=== PATIENT | female | born 1955 | race Caucasian/White ===

== ENCOUNTER 2020-05-24 11:01 | Outpatient (CLI) | payer BC, SELFPAY | END 2020-05-24 11:02 | disposition home or self-care (01) | LOC: ANHCOVIDVC 11:01 | PROVIDERS: PCP Family Medicine | DX: Z23 Encounter for immunization (principal) | CPT/HCPCS: 0001A; 91300 ==

== ENCOUNTER 2020-06-14 10:56 | Outpatient (CLI) | payer BC, SELFPAY | END 2020-06-14 10:57 | disposition home or self-care (01) | LOC: ANHCOVIDVC 10:56 | PROVIDERS: PCP Family Medicine | DX: Z23 Encounter for immunization (principal) | CPT/HCPCS: 0002A; 91300 ==

== ENCOUNTER → 2022-04-29 09:14 | Outpatient (CLI) | payer MEDICARE, SELFPAY ==
--- NOTE | ~2022-04-29 | XR_ITS ---
Clinical Indication: Cough PA and lateral views of the chest: Comparison: 11/01/2012 Findings: The lungs are clear, without evidence of focal consolidation or pleural effusion. Cardiome diastinal silhouette is within normal limits. Bones and soft tissues are unremarkable. Impression: Normal chest. Reviewed, dictated and finalized at [facility]. 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
== END ==
PROVIDERS: PCP Family Medicine; Visit Provider Nurse Practitioner Gerontology
DX: R05.9 Cough, unspecified (principal)
CPT/HCPCS: 71046

== ENCOUNTER 2023-09-08 07:00 | Outpatient (NON) | payer MEDICARE, SELFPAY | END 2023-09-08 07:01 | disposition home or self-care (01) | PROVIDERS: PCP Family Medicine; Visit Provider Internal Medicine Gastroenterology | DX: R13.10 Dysphagia, unspecified (principal); K21.9 Gastro-esophageal reflux disease without esophagitis | CPT/HCPCS: 88305 ==

== ENCOUNTER 2023-09-08 08:50 | Day surgery (SDC) | payer MEDICARE, SELFPAY ==
[2023-09-02 09:23] VITALS: BMI 37.3
[2023-09-02 10:49] VITALS: BMI 35.5
--- NOTE | 2023-09-07 15:28 | WPDANESEPPF ---
Anes - Initial Pre Proc Eval Procedure: Operation Date: 09/08/23 11:00 Proposed Procedures p Esophagogastroduodenoscopy - Lucas Escamilla MD Date/Time: 09/07/23 15:28 Surgeon: Lucas Escamilla MD Pre Op Diagnosis: Dysphagia unspecified Patient Data Age: 67 Gender: F Height: 1.6 m Weight: 91 kg Allergies Allergy/AdvReac Type Severity Reaction Status Date / Time No Known Allergies Allergy Verified 09/08/23 09:58 Home Medications Medication Instructions Recorded Confirmed Type buspirone 5 mg tablet 5 mg PO BID PRN Anxiety 05/15/23 09/08/23 History fluticasone fur. 100 mcg-umeclid 1 inh inhalation DAILY 05/15/23 09/08/23 History 62.5 mcg-vilant 25 mcg inhalat.powder (Trelegy Ellipta) escitalopram oxalate 20 mg tablet 20 mg PO DAILY #90 tabs 07/08/23 09/08/23 Rx (Lexapro) albuterol sulfate 90 mcg/actuation See Rx Instructions .Route 08/10/23 09/08/23 Rx aerosol inhaler .COMPLEX #7 ea hydrocortisone 2.5 % topical 1 applic topical BID PRN itching 08/28/23 09/08/23 Rx ointment #20 grams allopurinol 300 mg tablet 300 mg PO DAILY 09/02/23 09/08/23 History celecoxib 200 mg capsule 200 mg PO BID PRN Pain 09/02/23 09/08/23 History cetirizine 10 mg tablet (Zyrtec) 10 mg PO DAILY 09/02/23 09/08/23 History levothyroxine 75 mcg tablet 75 mcg PO DAILY 09/02/23 09/08/23 History lisinopril 10 mg tablet 10 mg PO DAILY 09/02/23 09/08/23 History omeprazole 20 mg capsule,delayed 20 mg PO DAILY 09/02/23 09/08/23 History release propranolol 40 mg tablet 40 mg PO BID 09/02/23 09/08/23 History triamterene 37.5 1 tablet PO DAILY 09/02/23 09/08/23 History mg-hydrochlorothiazide 25 mg tablet Patient hx anesthesia problems: none Family hx anesthesia problems: none Results Review: All pre-operative results and documents have been reviewed as part of the pre-operative evaluation. PMFSH Past Medical History Medical History Arthritis Benign essential HTN BP (high blood pressure) Chronic cough Chronic pain Cough Diabetes type 2, controlled Gout HLD (hyperlipidemia) Hypothyroidism associated with surgical procedure Migraines Surgical History Surgical History H/O thyroidectomy History of arthroscopic knee surgery right knee 2008 History of total knee arthroplasty right knee x3 2007, 2012, 2013 left knee 2008 Family History Family History Sibling Cerebrovascular accident, Onset Age: 53 Mother Family history of diabetes mellitus in mother, Onset Age: 79 Social History Social History Social History: Smoking status: Never smoker Second hand tobacco smoke exposure: No Alcohol intake: never Substance use: never Substance use type: does not use Lack of Transportation: No Lack of Food: Never True Current Housing: I Have Housing Concerned About Future Housing: No Difficulty Paying Gas/Electric Bills: No Difficulty Paying for Meds: No Currently Unemployed: YES Education: Decline to Answer Difficulty w/ Childcare or Family Care: No Living arrangements: alone Occupation/Education: retired Gender identity (if verbalized by the patient): Female Sexual Orientation (if Verbalized by the Patient): Straight or Heterosexual Spiritual care concerns: No Anes - Eval Final PreProcedure Day of Procedure 09/07/23 15:28 Patient weight: obese Heart: regular rate and rhythm Lungs: clear to auscultation Airway: Mallampati scale class II Neurological: alert and oriented Last oral intake: >/= 8 hours ASA classification: III Emergent: no Anesthetic plan: proceed Anesthesia type and monitoring: general GIVS and standard monitoring Results Review: All pre-operative results and documents have been reviewed as part of the pre-operative e
--- NOTE | 2023-09-07 21:03 | PM.HPGS ---
History of Present Illness History of Present Illness Consent: Risks, benefits, and alternatives have been discussed and questions answered. Patient agrees to proceed with procedure. Chief complaint: Dysphagia unspecified Narrative: Sheri Berger is a 67 year old female referred for investigation of dysphagia. The last couple of years she has had food getting stuck. She feels as though she is choking on food At Times even liquids can cause it to happen. Review of Systems Review of Systems: All systems reviewed & are unremarkable except as noted in HPI and below PMFSH Past Medical History Medical History Arthritis Benign essential HTN BP (high blood pressure) Chronic cough Chronic pain Cough Diabetes type 2, controlled Gout HLD (hyperlipidemia) Hypothyroidism associated with surgical procedure Migraines Surgical History Surgical History H/O thyroidectomy History of arthroscopic knee surgery right knee 2008 History of total knee arthroplasty right knee x3 2007, 2011, 2013 left knee 2008 Family History Family History Sibling Cerebrovascular accident, Onset Age: 53 Mother Family history of diabetes mellitus in mother, Onset Age: 79 Social History Social History Social History: Smoking status: Never smoker Second hand tobacco smoke exposure: No Alcohol intake: never Substance use: never Substance use type: does not use Lack of Transportation: No Lack of Food: Never True Current Housing: I Have Housing Concerned About Future Housing: No Difficulty Paying Gas/Electric Bills: No Difficulty Paying for Meds: No Currently Unemployed: YES Education: Decline to Answer Difficulty w/ Childcare or Family Care: No Living arrangements: alone Occupation/Education: retired Gender identity (if verbalized by the patient): Female Sexual Orientation (if Verbalized by the Patient): Straight or Heterosexual Spiritual care concerns: No Meds Home Medications and Allergies Home Medications Medication Instructions Recorded Confirmed Type buspirone 5 mg tablet 5 mg PO BID PRN Anxiety 05/15/23 09/08/23 History fluticasone fur. 100 mcg-umeclid 1 inh inhalation DAILY 05/15/23 09/08/23 History 62.5 mcg-vilant 25 mcg inhalat.powder (Trelegy Ellipta) escitalopram oxalate 20 mg tablet 20 mg PO DAILY #90 tabs 07/08/23 09/08/23 Rx (Lexapro) albuterol sulfate 90 mcg/actuation See Rx Instructions .Route 08/10/23 09/08/23 Rx aerosol inhaler .COMPLEX #7 ea hydrocortisone 2.5 % topical 1 applic topical BID PRN itching 08/28/23 09/08/23 Rx ointment #20 grams allopurinol 300 mg tablet 300 mg PO DAILY 09/02/23 09/08/23 History celecoxib 200 mg capsule 200 mg PO BID PRN Pain 09/02/23 09/08/23 History cetirizine 10 mg tablet (Zyrtec) 10 mg PO DAILY 09/02/23 09/08/23 History levothyroxine 75 mcg tablet 75 mcg PO DAILY 09/02/23 09/08/23 History lisinopril 10 mg tablet 10 mg PO DAILY 09/02/23 09/08/23 History omeprazole 20 mg capsule,delayed 20 mg PO DAILY 09/02/23 09/08/23 History release propranolol 40 mg tablet 40 mg PO BID 09/02/23 09/08/23 History triamterene 37.5 1 tablet PO DAILY 09/02/23 09/08/23 History mg-hydrochlorothiazide 25 mg tablet Allergies Allergy/AdvReac Type Severity Reaction Status Date / Time No Known Allergies Allergy Verified 09/08/23 09:58 Exam Const: General: alert Orientation/consciousness: patient oriented x3 Resp: Auscultation: clear to auscultation bilaterally Cardio: Rhythm: regular rhythm GI: GI Palp: Yes Soft to palpation and No Tenderness to palpation present (GI) Neuro: General: patient oriented x3 Assessment and Plan Assessment and plan (1) Dysphagia: Code(s): R13.10 - Dysphagia,
[2023-09-08 10:05] VITALS: BP 144/65; PULSE 61; RESP 18; TEMP 36.6; O2SAT 98; BMI 39.9
[2023-09-08] MEDS: LACTATED RINGERS 1,000 ML 150 ML IV CONT (10:18)
[2023-09-08 11:03] VITALS: BP 109/58; PULSE 59; RESP 16; O2SAT 96
[2023-09-08 11:15] VITALS: BP 124/59; PULSE 58; RESP 15; O2SAT 97
[2023-09-08 11:25] VITALS: BP 135/65; PULSE 57; RESP 15; O2SAT 97
--- NOTE | 2023-09-08 11:58 | WPDANESPN ---
Anes - Prog Note Post-Op Date/Time: 09/08/23 11:58 Cardiovascular status: normal Respiratory status: normal Airway patency: baseline Mental status: baseline Post-Op hydration status: normal Vital Signs: Last Vital Signs Temp 36.6 C 09/08/23 10:05 Pulse 57 L 09/08/23 11:25 Resp 15 09/08/23 11:25 BP 135/65 09/08/23 11:25 Pulse Ox 97 09/08/23 11:25 O2 Del Method Room Air 09/08/23 11:25 Pain Score (VAS): 0 I/O: Intake & Output 09/07/23 09/08/23 09/08/23 23:59 07:59 15:59 Intake Total 400 Balance 400 Post-procedural complaints: none Patient Feedback: Patient satisfied with anesthetic care. Other Findings: Patient vital signs back to baseline. Patient denies nausea and vomiting. Patient's pain under control. Patient OK for discharge.
== END 2023-09-08 11:44 | disposition home or self-care (01) ==
PROVIDERS: PCP Family Medicine; Visit Provider Internal Medicine Gastroenterology
PROC: 0DJ08ZZ Inspection of Upper Intestinal Tract, Via Natural or Artificial Opening Endoscopic (ICD-10-PCS; CPT 43235; principal; 2023-09-08 11:00)
DX: R13.19 Other dysphagia (principal); K22.2 Esophageal obstruction; K31.89 Other diseases of stomach and duodenum
CPT/HCPCS: 43249; 43239

== ENCOUNTER 2023-09-09 13:48 | Outpatient (CLI) | payer MEDICARE, SELFPAY ==
--- NOTE | 2023-09-10 12:39 | WPDPFTINT ---
PFT Procedure Performed PFT Procedure Performed Spirometry with Pre/Post Bronchodilator Plethysmography (Lung Vol) Diffusing Cap (DLCO) Flow Vol Loop PFT Interpretation Lung volumes were measured with the body plethysmography method. The diminished expiratory reserve volume is related to obesity. The remaining lung volumes are unremarkable. Spirometry showed diminished expiratory flow rates and a normal FEV1 to FVC ratio of 83%. Following administration of a bronchodilator there was no significant increase in expiratory flow rates. Lung diffusion capacity is within the normal range at 86% predicted. The flow volume loop is unremarkable. Overall pulmonary function testing could be consistent with obesity. Clinical correlation advised. Impression: Nonspecific pattern. Lung diffusion capacity within the normal range.
== END 2023-09-09 13:49 | disposition home or self-care (01) ==
LOC: ANHPFT 13:53
PROVIDERS: PCP Family Medicine; Visit Provider Physician Assistant
DX: R06.02 Shortness of breath (principal); R05.9 Cough, unspecified
CPT/HCPCS: 94060; 94726; 94729

== ENCOUNTER 2023-10-19 12:00 | Outpatient (CLI) | payer MEDICARE, SELFPAY ==
--- NOTE | ~2023-10-19 | XR_ITS ---
XR foot RT min 3V Ordering provider: Celestina Desai PA-C History: . fall, right foot/big toe swollen . Comparison: None. FINDINGS: BONES: No definite acute fracture or dislocation. Possible lucency in the base of the proximal phalan x of the fourth and fifth toes. Clinical evaluation for tenderness in the area advised. Calcaneus spur. Ossification of the insertion of the tendo Achilles. JOINT SPACES: Normal. No tarsal coalition. SOFT TISSUES: Normal. IMPRESSION: No definite acute osseous abnormality of the right foot. Possible lucency in the base of the proximal phalanx of the fourth and fifth toes. Clinical evaluatio n for tenderness in the area advised. Reviewed, dictated and finalized at location A. IMPRESSION: No definite acute osseous abnormality of the right foot. Possible lucency in the base of the proximal phalanx of the fourth and fifth to es. Clinical evaluation for tenderness in the area advised.
== END 2023-10-19 12:01 ==
LOC: MICIMG 12:02
PROVIDERS: PCP Family Medicine; Visit Provider Physician Assistant
DX: R22.41 Localized swelling, mass and lump, right lower limb (principal); W19.XXXA Unspecified fall, initial encounter
CPT/HCPCS: 73630

== ENCOUNTER 2023-12-04 14:32 | Outpatient (CLI) | payer MEDICARE, SELFPAY ==
--- NOTE | ~2023-12-04 | XR_ITS ---
[id number] Ordering provider: Celestina Desai PA-C History: . M54.2 - Cervicalgia . Comparison: None. FINDINGS: VERTEBRAL BODIES: Normal height and alignment. No visible fracture or subluxation. The dens is intact . DISK SPACES: Narrowing of the disc C3-C4, C4-C5 and C6-C7. Multilevel facet joint disease. Multilevel uncovertebral joint osteoarthritic changes. PARASPINOUS SOFT TISSUES: No prevertebral soft tissue swelling. IMPRESSION: No acute osseous abnormality cervical spine. Multilevel degenerative disc disease. Reviewed, dictated and finalized at location A.
--- NOTE | ~2023-12-04 | XR_ITS ---
3 VIEWS THORACIC SPINE Ordering provider: Celestina Desai PA-C History: . Chronic back pain . Comparison: May 19, 2013 FINDINGS: VERTEBRAL BODIES: Normal height and alignment. No visible fracture or subluxation. Degenerative nichols es of the spine. DISK SPACES: Multilevel degenerative disc disease. SOFT TISSUES: Normal. IMPRESSION: No acute osseous abnormality of the thoracic spine. Multilevel degenerative disc disease. Reviewed, dictated and finalized at location A.
--- NOTE | ~2023-12-04 | XR_ITS ---
3 VIEWS LUMBAR SPINE Ordering provider: Celestina Desai PA-C History: . Chronic back pain . Comparison: None. FINDINGS: VERTEBRAL BODIES:Dextroscoliosis. Degenerative changes of the spine. No visible fracture or subluxat ion. DISK SPACES: Narrowing of all disc spaces in the lumbar area. SOFT TISSUES: Vascular calcifications. IMPRESSION: No acute osseous abnormality lumbar spine. Multilevel degenerative disc disease. Reviewed, dictated and finalized at location A.
== END 2023-12-04 14:33 | disposition home or self-care (01) ==
LOC: MICIMG 14:33
PROVIDERS: PCP Family Medicine; Visit Provider Physician Assistant
DX: G89.29 Other chronic pain (principal); M51.36 Other intervertebral disc degeneration, lumbar region; M51.34 Other intervertebral disc degeneration, thoracic region; M50.31 Other cervical disc degeneration, high cervical region; M50.322 Other cervical disc degeneration at C5-C6 level; M50.323 Other cervical disc degeneration at C6-C7 level
CPT/HCPCS: 72040; 72072; 72100

== ENCOUNTER 2024-01-11 07:59 | Outpatient (CLI) | payer MEDICARE, SELFPAY ==
--- NOTE | ~2024-01-11 | CT_ITS ---
CT of the Abdomen and Pelvis: Indication: Abdominal pain Technique: 2.5 mm axial scans were obtained through the abdomen and pelvis following intravenous adm inistration of 100 cc of Omnipaque 350. Dose reduction technique was used on this scan by utilizing a utomated exposure control and iterative reconstruction technique. The dose-length product (DLP) was 9 40.33 mGy-cm. Findings: Scans through the lung bases are unremarkable. There is diffuse hepatic steatosis. The spleen, pancreas, gallbladder, adrenals and kidneys are withi n normal limits. There are atherosclerotic calcifications of the aorta. No lymphadenopathy. No bowel obstruction or bowel wall thickening. There is no evidence to suggest acute appendicitis. Images through the pelvis were performed. Urinary bladder unremarkable. No pelvic mass seen. No ascit es. There is extensive degenerative spondylosis of the lumbar spine. Impression: No acute abnormalities seen. Diffuse hepatic steatosis. Reviewed, dictated and finalized at [facility]. Impression: No acute abnormalities seen. Diffuse hepatic steatosis.
[2024-01-11 08:28] LABS: Estimated Glomerular Filt Rate 49
== END 2024-01-11 08:00 | disposition home or self-care (01) ==
LOC: MICIMG 08:00
PROVIDERS: PCP Family Medicine; Visit Provider Physician Assistant
DX: K76.0 Fatty (change of) liver, not elsewhere classified (principal); R10.32 Left lower quadrant pain; R19.7 Diarrhea, unspecified
CPT/HCPCS: 74177; Q9967

== ENCOUNTER 2024-01-27 08:14 | Day surgery (SDC) | payer MEDICARE, SELFPAY ==
[2023-12-11 13:52] VITALS: BMI 40.0
[2024-01-19 10:37] VITALS: BMI 35.3
--- NOTE | 2024-01-26 14:08 | P.PNAN_ITS ---
Anes - Initial Pre Proc Eval Procedure: Operation Date: 01/27/24 13:00 Proposed Procedures p Screening Colonoscopy - Laith Hernandez MD Date/Time: 01/26/24 14:08 Surgeon: Laith Hernandez MD Pre Op Diagnosis: Screening for Neoplasm of Colon Patient Data Age: 68 Gender: F Height: 1.6 m Weight: 90.5 kg Allergies Allergy/AdvReac Type Severity Reaction Status Date / Time No Known Allergies Allergy Verified 01/27/24 08:30 Home Medications Medication Instructions Recorded Confirmed Type hydrocortisone 2.5 % topical 1 applic topical BID PRN itching 08/28/23 01/27/24 Rx ointment #20 grams cetirizine 10 mg tablet (Zyrtec) 10 mg PO DAILY 09/02/23 01/27/24 History allopurinol 300 mg tablet 300 mg PO DAILY #90 tabs 01/01/24 01/27/24 Rx celecoxib 200 mg capsule 200 mg PO BID PRN Pain #180 caps 01/01/24 01/27/24 Rx duloxetine 30 mg capsule,delayed 30 mg PO DAILY #30 caps 01/01/24 01/27/24 Rx release (Cymbalta) levothyroxine 75 mcg tablet 75 mcg PO DAILY #90 tabs 01/01/24 01/27/24 Rx lisinopril 10 mg tablet 10 mg PO DAILY #90 tabs 01/01/24 01/27/24 Rx metformin 500 mg tablet 500 mg PO BIDWMEAL #180 tabs 01/01/24 01/27/24 Rx omeprazole 40 mg capsule,delayed 40 mg PO DAILY #90 caps 01/01/24 01/27/24 Rx release propranolol 40 mg tablet 40 mg PO BID #180 tabs 01/01/24 01/27/24 Rx triamterene 37.5 See Rx Instructions .Route 01/01/24 01/27/24 Rx mg-hydrochlorothiazide 25 mg tablet .COMPLEX #100 tabs Patient hx anesthesia problems: none Family hx anesthesia problems: none Results Review: All pre-operative results and documents have been reviewed as part of the pre- operative evaluation. [facility] Past Medical History Medical History Arthritis Benign essential HTN BP (high blood pressure) Chronic cough Chronic pain Cough Diabetes type 2, controlled Gout HLD (hyperlipidemia) Hypothyroidism associated with surgical procedure Migraines Surgical History Surgical History H/O thyroidectomy History of arthroscopic knee surgery right knee 2008 History of total knee arthroplasty right knee x3 2007, 2011, 2013 left knee 2008 Family History Family History Sibling Cerebrovascular accident, Onset Age: 53 Mother Family history of diabetes mellitus in mother, Onset Age: 79 Social History Social History Social History: Smoking status: Never smoker Second hand tobacco smoke exposure: No Alcohol intake: unknown Substance use: never Substance use type: does not use Lack of Transportation: No Lack of Food: Never True Current Housing: I Have Housing Concerned About Future Housing: No Difficulty Paying Gas/Electric Bills: No Difficulty Paying for Meds: No Currently Unemployed: YES Education: Decline to Answer Difficulty w/ Childcare or Family Care: No Living arrangements: with family Occupation/Education: retired Gender identity (if verbalized by the patient): Female Sexual Orientation (if Verbalized by the Patient): Straight or Heterosexual Spiritual care concerns: No Anes - Eval Final PreProcedure Day of Procedure 01/26/24 14:08 Patient weight: obese Heart: regular rate and rhythm Lungs: clear to auscultation Airway: Mallampati scale class II Neurological: alert and oriented Last oral intake: >/= 8 hours ASA classification: III Emergent: no Anesthetic plan: proceed Anesthesia type and monitoring: general GIVS and standard monitoring Results Review: All pre-operative results and documents have been reviewed as part of the pre- operative evaluation. Informed Consent: The patient's anesthetic plan and its attendant risks and benefits were di scussed with the patient/family/POA. Questions were solicited and answers provided to the satisfaction of the patient/family/POA.
[2024-01-27 08:31] VITALS: BP 146/76; PULSE 71; RESP 16; TEMP 36.9; O2SAT 99
[2024-01-27] MEDS: LACTATED RINGERS 1,000 ML 150 ML IV CONT (08:44)
[2024-01-27 08:46] LABS: Glucose Point of Care 150 mg/dl (65-105)
--- NOTE | 2024-01-27 09:01 | PM.HPGS ---
History of Present Illness History of Present Illness Consent: Risks, benefits, and alternatives have been discussed and questions answered. Patient agrees to proceed with procedure. Chief complaint: Screening for Neoplasm of Colon Narrative: Sheri Berger is a 68 year old female presents for screening colonoscopy. Patient's current weight appetite and bowel movements are normal. She denies any change. She has had no bleeding. She does report intermittent vague left upper quadrant pain. She also has associated constipation and alteration in bowel habits. Colonoscopy has been requested for screening purposes. Previous colonoscopy in 2009 was unremarkable. Review of Systems Review of Systems: All systems reviewed & are unremarkable except as noted in HPI and below PMFSH Past Medical History Medical History Arthritis Benign essential HTN BP (high blood pressure) Chronic cough Chronic pain Cough Diabetes type 2, controlled Gout HLD (hyperlipidemia) Hypothyroidism associated with surgical procedure Migraines Surgical History Surgical History H/O thyroidectomy History of arthroscopic knee surgery right knee 2008 History of total knee arthroplasty right knee x3 2007, 2012, 2013 left knee 2008 Family History Family History Sibling Cerebrovascular accident, Onset Age: 53 Mother Family history of diabetes mellitus in mother, Onset Age: 79 Social History Social History Social History: Smoking status: Never smoker Second hand tobacco smoke exposure: No Alcohol intake: unknown Substance use: never Substance use type: does not use Lack of Transportation: No Lack of Food: Never True Current Housing: I Have Housing Concerned About Future Housing: No Difficulty Paying Gas/Electric Bills: No Difficulty Paying for Meds: No Currently Unemployed: YES Education: Decline to Answer Difficulty w/ Childcare or Family Care: No Living arrangements: with family Occupation/Education: retired Gender identity (if verbalized by the patient): Female Sexual Orientation (if Verbalized by the Patient): Straight or Heterosexual Spiritual care concerns: No Meds Home Medications and Allergies Home Medications Medication Instructions Recorded Confirmed Type hydrocortisone 2.5 % topical 1 applic topical BID PRN itching 08/28/23 01/27/24 Rx ointment #20 grams cetirizine 10 mg tablet (Zyrtec) 10 mg PO DAILY 09/02/23 01/27/24 History allopurinol 300 mg tablet 300 mg PO DAILY #90 tabs 01/01/24 01/27/24 Rx celecoxib 200 mg capsule 200 mg PO BID PRN Pain #180 caps 01/01/24 01/27/24 Rx duloxetine 30 mg capsule,delayed 30 mg PO DAILY #30 caps 01/01/24 01/27/24 Rx release (Cymbalta) levothyroxine 75 mcg tablet 75 mcg PO DAILY #90 tabs 01/01/24 01/27/24 Rx lisinopril 10 mg tablet 10 mg PO DAILY #90 tabs 01/01/24 01/27/24 Rx metformin 500 mg tablet 500 mg PO BIDWMEAL #180 tabs 01/01/24 01/27/24 Rx omeprazole 40 mg capsule,delayed 40 mg PO DAILY #90 caps 01/01/24 01/27/24 Rx release propranolol 40 mg tablet 40 mg PO BID #180 tabs 01/01/24 01/27/24 Rx triamterene 37.5 See Rx Instructions .Route 01/01/24 01/27/24 Rx mg-hydrochlorothiazide 25 mg tablet .COMPLEX #100 tabs Allergies Allergy/AdvReac Type Severity Reaction Status Date / Time No Known Allergies Allergy Verified 01/27/24 08:30 Vital Signs Vital Signs - 24 hr 01/27/24 08:31 Temperature 98.4 F Pulse Rate 71 Respiratory Rate 16 Blood Pressure 146/76 H Pulse Oximetry 99 Oxygen Delivery Room Air Exam Narrative: Physical exam reveals patient to be alert. Vital signs stable. HEENT exam is unremarkable. Patient is anicteric. Lungs are clear to auscultation and to percussion. Heart is without murmur or extra sounds. Abdomen bowel sounds are present soft nontender with no organomegaly. Digital external rectal exam is normal. Assessment and Plan Assessment and plan (1) Screen for colon cancer: Code(s): Z12.11 - Encounter for screening for malignant neoplasm of colon Status: Acute Assessment and Plan: Presents today for neoplasia screening colonoscopy. Further recommendations may be given after endoscopy.
[2024-01-27 10:31] VITALS: BP 128/65; PULSE 76; RESP 16; O2SAT 97
[2024-01-27 10:41] VITALS: BP 130/64; PULSE 75; RESP 18; O2SAT 98
[2024-01-27 10:51] VITALS: BP 135/69; PULSE 64; RESP 18; O2SAT 100
--- NOTE | 2024-01-27 12:53 | WPDANESPN ---
Anes - Prog Note Post-Op Date/Time: 01/27/24 12:53 Cardiovascular status: normal Respiratory status: normal Airway patency: baseline Mental status: baseline Post-Op hydration status: normal Vital Signs: Last Vital Signs Temp 36.9 C 01/27/24 08:31 Pulse 64 01/27/24 10:51 Resp 18 01/27/24 10:51 BP 135/69 01/27/24 10:51 Pulse Ox 100 01/27/24 10:51 O2 Del Method Room Air 01/27/24 10:51 Pain Score (VAS): 0 I/O: Intake & Output 01/26/24 01/27/24 01/27/24 23:59 07:59 15:59 Intake Total 400 Balance 400 01/27/24 08:42 POC Capillary Glucose 150 H Post-procedural complaints: none Patient Feedback: Patient satisfied with anesthetic care. Other Findings: Patient vital signs back to baseline. Patient denies nausea and vomiting. Patient's pain under control. Patient OK for discharge.
== END 2024-01-27 11:03 | disposition home or self-care (01) ==
PROVIDERS: PCP Family Medicine; Visit Provider Internal Medicine Gastroenterology
PROC: 0DJD8ZZ Inspection of Lower Intestinal Tract, Via Natural or Artificial Opening Endoscopic (ICD-10-PCS; CPT 45378; principal; 2024-01-27 13:00)
DX: Z12.11 Encounter for screening for malignant neoplasm of colon (principal); K64.8 Other hemorrhoids
CPT/HCPCS: 45378

== ENCOUNTER 2024-05-02 08:00 | Outpatient (CLI) | payer MEDICARE, SELFPAY ==
--- NOTE | ~2024-05-02 | MR_ITS ---
EXAMINATION: MR lumbar spine wo con DATE: 05/02/2024 08:39 INDICATION: Radiculopathy, lumbosacral region. TECHNIQUE: Magnetic resonance imaging (MRI) of the lumbar spine was performed without intravenous con trast. Sequences included sagittal T2-weighted FSE, sagittal T2-weighted FS FSE, sagittal T1-weighted FSE, and axial T2-weighted FSE. COMPARISON: Lumbar spine radiographs 12/04/2023 FINDINGS: There is 27 degrees dextroscoliosis of lumbar spine. There is 3 mm retrolisthesis of L1 on L2. There is severely decreased disc height from T12-L1 through L5-S1. The distal spinal cord signal intensity is normal. The conus medullaris is at T12-L1. The following disc levels are specifically di scussed: L1-L2: The disc is bulging. There is severe bilateral facet joint osteoarthritis. There is mild bilat eral neural foraminal stenosis. There is mild central canal stenosis. L2-L3: The disc is bulging. There is severe bilateral facet joint osteoarthritis. There is mild bilat eral neural foraminal stenosis. There is mild central canal stenosis. L3-L4: The disc is bulging. There is severe bilateral facet joint osteoarthritis. There is mild bilat eral neural foraminal stenosis. There is mild central canal stenosis. L4-L5: The disc is bulging. There is severe bilateral facet joint osteoarthritis. There is moderate r ight and mild left neural foraminal stenosis. There is mild central canal stenosis. L5-S1: The disc is bulging. There is severe bilateral facet joint osteoarthritis. There is mild bilat eral neural foraminal stenosis. There is mild central canal stenosis. IMPRESSION: 1. Severe lumbar spondylosis. 2. Lumbar dextroscoliosis. Reviewed, dictated and finalized at location A. 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
== END 2024-05-02 08:01 | disposition home or self-care (01) ==
PROVIDERS: PCP Family Medicine; Visit Provider Anesthesiology Pain Medicine
DX: M47.816 Spondylosis without myelopathy or radiculopathy, lumbar region (principal); M41.86 Other forms of scoliosis, lumbar region; M48.062 Spinal stenosis, lumbar region with neurogenic claudication
CPT/HCPCS: 72148

== ENCOUNTER 2024-05-24 07:29 | Day surgery (SDC) | payer MEDICARE, SELFPAY ==
[2024-05-03 10:49] VITALS: BMI 37.8
--- NOTE | 2024-05-04 15:07 | SUR.PREOP ---
PT NOTIFIED OF TIME CHANGE. PROCEDURE TIME IS NOW 0900. PT TO ARRIVE AT [facility] AT 0800. PT MAY STILL HAVE A LIGHT BREAKFAST BUT MUST BE FINISHED AND NPO AT 0700. 2 HOURS PRIOR TO PROCEDURE. PT VERBALIZED UNDERSTANDING.
[2024-05-24 08:10] VITALS: BP 136/71; PULSE 74; RESP 20; TEMP 36.8; O2SAT 97; BMI 37.3
--- NOTE | 2024-05-24 08:12 | PM.HPGS ---
History of Present Illness History of Present Illness Consent: Risks, benefits, and alternatives have been discussed and questions answered. Patient agrees to proceed with procedure. Chief complaint: Lumbosacral spondylosis, chronic low back pain Narrative: Sheri Berger is a 68 year old female with chronic, recalcitrant and disabling bilateral lumbosacral back pain secondary to degenerative spondylosis with failure to respond to aggressive conservative measures including PT, oral and topical analgesics, opioid and nonopioid analgesics, rest, time and activity/behavioral modification over the past 1-2 years who presents for diagnostic/prognostic medial branch blocks of the bilateral L3, L4, L5 medial branches/dorsal ramus(#1) addressing the ipsilateral L4-5, L5-S1 facet joints under fluoroscopic guidance and with contrast control. Review of Systems Review of Systems: Patient denies any new infectious, allergic, cardiopulmonary, neurologic or constitutional symptoms or changes in activity tolerance or exercise capacity including new or progressive SOB/KANG, peripheral edema, productive cough, dysuria, nausea/vomiting, diarrhea, weight change, fevers/chills/night sweats, new or progressive neurologic deficit, cognitive or mood changes since last seen, except as documented in the HPI. All systems reviewed & are unremarkable except as noted in HPI and below PMFSH Past Medical History Medical History Diabetes type 2, controlled Chronic cough Cough HLD (hyperlipidemia) Hypothyroidism associated with surgical procedure Benign essential HTN Migraines Gout Chronic pain Arthritis BP (high blood pressure) Surgical History Surgical History History of arthroscopic knee surgery right knee 2008 H/O thyroidectomy History of total knee arthroplasty right knee x3 2007, 2012, 2013 left knee 2008 Family History Family History Sibling Cerebrovascular accident, Onset Age: 53 Mother Family history of diabetes mellitus in mother, Onset Age: 79 Social History Social History Social History: Smoking status: Never smoker Second hand tobacco smoke exposure: No Alcohol intake: unknown Substance use: never Substance use type: does not use Lack of Transportation: No Lack of Food: Never True Current Housing: I Have Housing Concerned About Future Housing: No Difficulty Paying Gas/Electric Bills: No Difficulty Paying for Meds: No Currently Unemployed: YES Education: Decline to Answer Difficulty w/ Childcare or Family Care: No Living arrangements: with family Occupation/Education: retired Gender identity (if verbalized by the patient): Female Sexual Orientation (if Verbalized by the Patient): Straight or Heterosexual Spiritual care concerns: No Meds Home Medications and Allergies Home Medications ?Medication ?Instructions ?Recorded ?Confirmed ?Type cetirizine 10 mg tablet (Zyrtec) 10 mg PO DAILY 09/02/23 05/24/24 History allopurinol 300 mg tablet 300 mg PO DAILY #90 tabs 01/01/24 05/24/24 Rx celecoxib 200 mg capsule 200 mg PO BID PRN Pain #180 caps 01/01/24 05/24/24 Rx levothyroxine 75 mcg tablet 75 mcg PO DAILY #90 tabs 01/01/24 05/24/24 Rx lisinopril 10 mg tablet 10 mg PO DAILY #90 tabs 01/01/24 05/24/24 Rx metformin 500 mg tablet 500 mg PO BIDWMEAL #180 tabs 01/01/24 05/24/24 Rx omeprazole 40 mg capsule,delayed 40 mg PO DAILY #90 caps 01/01/24 05/24/24 Rx release propranolol 40 mg tablet 40 mg PO BID #180 tabs 01/01/24 05/24/24 Rx triamterene 37.5 See Rx Instructions .Route 01/01/24 05/24/24 Rx mg-hydrochlorothiazide 25 mg tablet .COMPLEX #100 tabs duloxetine 30 mg capsule,delayed 30 mg PO DAILY #90 caps 02/12/24 05/24/24 Rx release (Cymbalta) alprazolam 0.5 mg tablet 0.5 mg PO DAILY anxiety #2 tabs 05/17/24 05/24/24 Rx Allergies Allergy/AdvReac Type Severity Reaction Status Date / Time No Known Allergies Allergy Verified 05/24/24 08:00 Vital Signs Vital Signs - 24 hr 05/24/24 08:10 Temperature 98.3 F Pulse Rate 74 Respiratory Rate 20 Blood Pressure 136/71 Pulse Oximetry 97 Oxygen Delivery Room Air Exam Narrative: The patient's physical exam is essentially unchanged from prior examination on 04/11/2024. Specifically, patient demonstrates normal lung capacity, tidal volume and respiratory rate without wheezes, crackles, rales or rubs. Heart rate and rhythm are regular without murmurs, gallops or rubs. No JVD. Pulses 2+ globally without increasing peripheral edema. AAOx3 with no evidence of confusion, intoxication or altered mental state, NC/AT without acute distress or altered consciousness. Speech, cognition, mood, insight and judgment at baseline and within normal limits. Assessment and Plan Assessment and plan (1) Lumbosacral spondylosis: Code(s): M47.817 - Spondylosis without myelopathy or radiculopathy, lumbosacral region Status: Acute Assessment and Plan: Proceed as planned with diagnostic/prognostic medial branch blocks of the bilateral L3, L4, L5 medial branches/dorsal ramus(#1) addressing the ipsilateral L4-5, L5-S1 facet joints under fluoroscopic guidance and with contrast control. (2) Dorsalgia of lumbosacral region: Code(s): M54.50 - Low back pain, unspecified Status: Acute (3) Chronic pain: Code(s): G89.29 - Other chronic pain Status: Acute
--- NOTE | 2024-05-24 08:14 | WPDHPUPDATE1 ---
History and Physical Update Update Date/Time: 05/24/24 08:14 History and Physical has been reviewed, including an updated exam of the patient. There are NO changes in the patient's condition. Risks, benefits, and alternatives have been discussed and questions answered. Patient agrees to proceed with procedure.
--- NOTE | 2024-05-24 08:14 | W.PM.PROC2 ---
Procedure Note - Detailed Date of Procedure 05/24/24 Pre-op Diagnosis Lumbosacral spondylosis, chronic low back pain Post-op Diagnosis Same Procedure Performed Diagnostic bilateral Lumbar Medial Branch/Dorsal Ramus Blocks at L3, L4, L5 Treating the bilateral L4-5, L5-S1 Facet Joints Under Fluoroscopic Guidance and with Contrast Control. (4 levels blocked). Surgeon Ruben Forde MD [facility]er Induction None. Anesthesia Local Description of Procedure INFORMED CONSENT: Risks, benefits and alternatives to the procedure were discussed in detail with the patient who expressed explicit understanding and consent to proceed. Patient was informed verbally and in written form regarding the risks associated with the procedure including the low risk of serious infection, bleeding/bruising, allergic reaction, nerve or organ injury, paralysis, procedural site pain or discomfort, worsening pain and/or mobility, failure to treat and/or disfigurement. The patient expressed explicit understanding and consent to proceed. All materials required for the procedure were available prior to procedure start. Site and side were marked prior to procedure and confirmed in the presence of the patient. PROCEDURE IN DETAIL: The patient was brought to the procedural suite and placed in the prone position. Patient was made comfortable with use of pillows under the head/chest, hips and ankles. Skin overlying the injection site on the affected side(s) was prepared broadly with ChloraPrep applicator and draped in a sterile manner. Aseptic technique was used throughout. The endplates of the vertebral bodies at the site(s) of interest were aligned in the AP view. Ipsilateral oblique angulation was utilized to optimize visualization of the intersection between the superior articulating process and transverse process at each target site. Local anesthesia was established by infiltration with approximately 5 mL of 1% lidocaine via a 1-1/2 inch 27-gauge needle. A 25-gauge 5.0 inch Quincke spinal needle was advanced until the needle tip contacted periosteum at the target site, right L3. Lateral view was utilized to confirm the appropriate placement of the needle tip just anterior to the facet line and superior to the pedicle. In the Lateral view, 0.25 mL of Omnipaque 300 contrast medium was injected after negative aspiration for CSF, blood or other bodily fluid, showing appropriate extra-articular spread of contrast without evidence of intravascular, foraminal or intrathecal placement. A 0.5 mL solution of 0.5% PF bupivacaine was injected after negative repeat aspiration. Appropriate spread of the injectate was confirmed with washout of previously injected contrast. No parasthesias were elicited. Needle was removed completely intact without difficulty. The same exact procedure was repeated for all remaining levels on the ipsilateral side, right L4, L5 medial branches/dorsal ramus, modified as necessary to accommodate for the new target location with identical findings and results and no evidence of complication. The same exact procedure was repeated for all remaining levels on the contralateral side, left L3, L4, L5 medial branches/dorsal ramus, modified as necessary to accommodate for the new target location with identical findings and results and no evidence of complication. Images were saved and documented in the patient chart. Patient's skin was cleaned and sterile bandage applied. The patient tolerated the procedure well. The patient was transported to the recovery area in stable condition where they were observed for an appropriate amount of time prior to discharge, without evidence of complication. Patient was instructed on the appropriate completion of a pain diary over the next 12-24 hours. The patient was instructed to avoid excessive activity for the next 48 hours, including climbing and frequent use of stairs. Showers only for 48 hours. They were instructed not to drive or operate heavy machinery for 24 hours. They are to monitor for severe headaches, fevers, chills, night sweats, erythema/swelling at the site or any other signs of infection, bleeding/bruising, bowel or bladder changes as well as new pain, weakness or numbness in the upper or lower extremity. Should they notice these changes, they are instructed to call our office immediately or report directly to the nearest Emergency Department if no answer or if after posted office hours. COMPLICATIONS: None COMMENTS: None CONTRAST WASTED: 28.5mL Omnipaque 300. Complications No immediate complications Condition Stable Disposition Same day [facility] Billing Surgery - Charge Forward: Surgery Billing
[2024-05-24 08:49] VITALS: BP 167/78; PULSE 75; RESP 26; O2SAT 97
[2024-05-24] MEDS: LIDOCAINE 1% PF INJ 5 ML VIAL XX (08:54)
[2024-05-24] MEDS: BUPivacaine HCL 0.5% 10 ML AMP INFILTRATE (08:56)
[2024-05-24 08:59] VITALS: BP 164/82; PULSE 74; RESP 23; O2SAT 97
[2024-05-24 09:06] VITALS: BP 120/66; PULSE 75; RESP 15; O2SAT 97
== END 2024-05-24 09:25 | disposition home or self-care (01) ==
PROVIDERS: PCP Family Medicine; Visit Provider Anesthesiology Pain Medicine
PROC: (CPT 64635; principal; 2024-05-24 09:00)
DX: M47.817 Spondylosis without myelopathy or radiculopathy, lumbosacral region (principal); M54.50 Low back pain, unspecified; G89.29 Other chronic pain
CPT/HCPCS: 64635; 64636 ×6; 99199

== ENCOUNTER 2024-08-02 07:29 | Day surgery (SDC) | payer MEDICARE, SELFPAY ==
--- NOTE | ~2024-08-02 | XR_ITS ---
EXAMINATION: XR fluoroscopy no charge DATE: 08/02/2024 8:55 CDT INDICATION: DIAG/PROG KATY L3,L4,L5 MED BRANCH/DORSAL RAMUS NERVE BLK . TECHNIQUE: 12 fluoroscopic images of the lumbar spine were obtained during diagnostic/prognostic bila teral L3, L4, and L5 medial branch/dorsal ramus nerve blocks, performed by Ruben Forde MD. I was not present during the procedure. Fluoroscopy exposure time was 90.1 seconds. Air Kerma 44.84 mGy. COMPARISON: 05/24/2024 FINDINGS/IMPRESSION: Fluoroscopic documentation of diagnostic/prognostic bilateral L3, L4, and L5 medial branch/dorsal jason us nerve blocks. Please refer to the operative note for complete procedural details . Reviewed, dictated and finalized at location K.
--- NOTE | 2024-08-02 08:02 | P.HP_ITS ---
History of Present Illness History of Present Illness Consent: Risks, benefits, and alternatives have been discussed and questions answered. Patient agrees to proceed with procedure. Chief complaint: Lumbosacral spondylosis, chronic low back pain Narrative: Sheri Berger is a 68 year old female with chronic, recalcitrant and disabling bilateral lumbosacral back pain secondary to degenerative spondylosis with failure to respond to aggressive conservative measures including PT, oral and topical analgesics, opioid and nonopioid analgesics, rest, time and activity/behavioral modification over the past 1-2 years who presents for diagnostic/prognostic medial branch blocks of the bilateral L3, L4, L5 medial branches/dorsal ramus(# 2) addressing the bilateral L4-5, L5-S1 facet joints under fluoroscopic guidance and with contrast control. Review of Systems Review of Systems: Patient denies any new infectious, allergic, cardiopulmonary, neurologic or constitutional symptoms or changes in activity tolerance or exercise capacity including new or progressive SOB/KANG, peripheral edema, productive cough, dysuria, nausea/vomiting, diarrhea, weight change, fevers/chills/night sweats, new or progressive neurologic deficit, cognitive or mood changes since last seen, except as documented in the HPI. All systems reviewed & are unremarkable except as noted in HPI and below PMFSH Past Medical History Medical History Diabetes type 2, controlled Chronic cough Cough HLD (hyperlipidemia) Hypothyroidism associated with surgical procedure Benign essential HTN Migraines Gout Chronic pain Arthritis BP (high blood pressure) Surgical History Surgical History History of arthroscopic knee surgery right knee 2007 H/O thyroidectomy History of total knee arthroplasty right knee x3 2007, 2012, 2013 left knee 2008 Family History Family History Sibling Cerebrovascular accident, Onset Age: 53 Mother Family history of diabetes mellitus in mother, Onset Age: 79 Social History Social History Social History: Smoking status: Never smoker Second hand tobacco smoke exposure: No Alcohol intake: unknown Substance use: never Substance use type: does not use Lack of Transportation: No Lack of Food: Never True Current Housing: I Have Housing Concerned About Future Housing: No Difficulty Paying Gas/Electric Bills: No Difficulty Paying for Meds: No Currently Unemployed: YES Education: Decline to Answer Difficulty w/ Childcare or Family Care: No Living arrangements: with family Occupation/Education: retired Gender identity (if verbalized by the patient): Female Sexual Orientation (if Verbalized by the Patient): Straight or Heterosexual Spiritual care concerns: No Meds Home Medications and Allergies Home Medications ?Medication ?Instructions ?Recorded ?Confirmed ?Type cetirizine 10 mg tablet (Zyrtec) 10 mg PO DAILY 09/02/23 07/12/24 History allopurinol 300 mg tablet 300 mg PO DAILY #90 tabs 01/01/24 07/12/24 Rx levothyroxine 75 mcg tablet 75 mcg PO DAILY #90 tabs 01/01/24 07/12/24 Rx lisinopril 10 mg tablet 10 mg PO DAILY #90 tabs 01/01/24 07/12/24 Rx metformin 500 mg tablet 500 mg PO BIDWMEAL #180 tabs 01/01/24 07/12/24 Rx triamcinolone acetonide 0.1 % 1 applic topical BID PRN eczema 05/31/24 07/12/24 Rx topical cream #15 grams alprazolam 0.5 mg tablet 0.5 mg PO DAILY anxiety #2 tabs 06/20/24 07/12/24 Rx celecoxib 200 mg capsule 200 mg PO BID PRN Pain #180 caps 06/29/24 07/12/24 Rx omeprazole 40 mg capsule,delayed 40 mg PO DAILY #90 caps 06/29/24 07/12/24 Rx release propranolol 40 mg tablet 40 mg PO BID #180 tabs 06/29/24 07/12/24 Rx triamterene 37.5 See Rx Instructions .Route 07/07/24 07/12/24 Rx mg-hydrochlorothiazide 25 mg tablet .COMPLEX #100 tabs duloxetine 30 mg capsule,delayed 30 mg PO DAILY #90 caps 07/15/24 Rx release (Cymbalta) Allergies Allergy/AdvReac Type Severity Reaction Status Date / Time No Known Allergies Allergy Verified 07/12/24 10:36 Exam Narrative: The patient's physical exam is essentially unchanged from prior examination on 06/06/2024. Specifically, patient demonstrates normal lung capacity, tidal volume and respiratory rate without wheezes, crackles, rales or rubs. Heart rate and rhythm are regular without murmurs, gallops or rubs. No JVD. Pulses 2+ globally without increasing peripheral edema. AAOx3 with no evidence of confusion, intoxication or altered mental state, NC/AT without acute distress or altered consciousness. Speech, cognition, mood, insight and judgment at base line and within normal limits. Assessment and Plan Assessment and plan (1) Lumbosacral spondylosis: Code(s): M47.817 - Spondylosis without myelopathy or radiculopathy, lumbosacral region Status: Acute Assessment and Plan: Proceed as planned with diagnostic/prognostic medial branch blocks of the bilateral L3, L4, L5 medial branches/dorsal ramus(# 2) addressing the bilateral L4-5, L5-S1 facet joints under fluoroscopic guidance and with contrast control. (2) Dorsalgia of lumbosacral region: Code(s): M54.50 - Low back pain, unspecified Status: Acute
--- OUTSIDE RECORDS SUMMARY | 2024-08-02 08:03 | XMS_ITS | Encounter Summary ---
Author Organization [facility] Address [facility] [place] [address] Care Team Providers Care Loader Name Role Phone Sherrill Jovel MD Primary Care Provider [phone] Encounter Details Date Type Department Care Team (Late st Contact Info) Description 02/17/2022 Hospital Orders Only [facility] [address] [place] [address] Bruce Coulter MD [address] [facility] [address] [place] [address] Social History Tobacco Use Types Packs/Day Years Used Date Smoking Tobacco: Never Smokeless Tobacco: Never Alcohol Use Standard Drinks/Week Comments Never 0 (1 standard drink = 0.6 oz pur e alcohol) Comments No Sex and Gender Information Value Date Recorded Sex Assigned at Not on file 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 No / Unsure 02/17/2022 8:52 AM GROUNDSKEEPER documented as of this encounter Plan of Treatment Not on file documented as of this encounter Visit Diagnoses Not on filedocumented in this encounter Care Teams Loader Relationship Specialty Start Date End Date Sherrill Jovel MD [address] [facility] [address] [place] [address] PCP - General FAMILY PRACTICE 02/17/22 documented as of this encounter
--- OUTSIDE RECORDS SUMMARY | 2024-08-02 08:03 | XMS_ITS | Referral Summary ---
Author Organization [facility] Address [address] [place] [address] Care Team Providers Care Co Op Name Role Phone Shani See NP Primary Care Provider +1- [phone] Allergies No known active allergies Medications allopurinoL (ZYLOPRIM) 300 mg tabletIndication s:gout Take 1 tablet (300 mg total) by mouth nightly 3 Active cetirizine (ZyrTEC) 10 mg chewable tablet Take 1 tablet (10 mg total) by mouth nightly Active escitalopram (LEXAPRO) 10 mg tabletIndication s:Anxiety with Depression Take 1 tablet (10 mg total) by mouth nightly 3 Active levothyroxine (SYNTHROID) 75 mcg tablet Take 1 tablet (75 mcg total) by mouth drafter commercial before breakfast 3 Active lisinopriL (PRINIVIL,ZESTRI L) 10 mg tabletIndication s:hypertension Take 0.5 tablets (5 mg total) by mouth nightly 3 Active omeprazole (PriLOSEC) 20 mg capsule Take 1 capsule (20 mg total) by mouth every morning 3 Active propranoloL (INDERAL) 40 mg tabletIndication s:Migraine Prevention,hyper tension Take 1 tablet (40 mg total) by mouth 2 (two) times a day 3 Active triamterene-hydr oCHLOROthiazide 37.5-25 mg per tabletIndication s:edema/ BP Take 1 tablet/capsule by mouth every morning 3 Active busPIRone (BUSPAR) 5 mg tablet Take 1 tablet (5 mg total) by mouth 2 (two) times a day as needed (anxiety) 3 Active rivaroxaban (XARELTO) 10 mg tabletIndication s:VTE Prophylaxis Following Ortho Surgery Take 1 tablet (10 mg total) by mouth daily 14 tablet 3 Active acetaminophen (TYLENOL) 500 mg tablet Take 2 tablets (1,000 mg total) by mouth every 8 (eight) hours 90 tablet 1 3 Active senna-docusate (Senna-S) 8.6-50 mg Take 2 tablets by mouth 2 (two) times a day 80 tablet 1 3 Active Additional Information Patient not taking.Reported on 04/26/2024 loperamide (IMODIUM) 2 mg capsuleIndicatio ns:diarrhea Take 1 capsule (2 mg total) by mouth 4 (four) times a day as needed for diarrhea 30 capsule 1 3 Active celecoxib (CeleBREX) 200 mg capsule TAKE 1 CAPSULE BY MOUTH TWICE DAILY NEEDED FOR PAIN 3 Active metFORMIN (GLUCOPHAGE) 500 mg tablet Take 1 tablet (500 mg total) by mouth daily 3 Active traMADoL (ULTRAM) 50 mg tablet Take 1 tablet (50 mg total) by mouth every 8 (eight) hours as needed for pain 42 tablet 3 Active Additional Information Patient not taking.Reported on 04/26/2024 oxyCODONE (ROXICODONE) 5 mg immediate release tabletIndication s:Pain Take 1 tablet (5 mg total) by mouth every 4 (four) hours as needed for pain 30 tablet 3 Active Additional Information Patient not taking.Reported on 04/26/2024 albuterol HFA (PROVENTIL HFA,VENTOLIN HFA,PROAIR HFA) 90 mcg/actuation inhaler INHALE 1 PUFF BY MOUTH EVERY 4 HOURS NEEDED FOR SHORTNESS OF BREATH FOR WHEEZING 3 Active benzonatate (TESSALON) 100 mg capsule TAKE 2 CAPSULES BY MOUTH THREE TIMES DAILY NEEDED FOR COUGH [address] (CYMBALTA) 30 mg capsule Take 1 capsule (30 mg total) by mouth daily 5 Active Active Problems Problem Noted Date Diagnosed Date Right knee pain 07/31/2022 Failed total right knee replacement, 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 HTN (hypertension) 07/22/2022 Hypothyroidism 07/22/2022 Class 2 obesity in adult 07/22/2022 Aseptic loosening of prosthetic knee, initial en counter 06/25/2022 Overview (06/25/2022): Added automatically from request for surgery [id number] Surgical follow-up care 11/09/2012 Knee pain 10/08/2012 Social History Tobacco Use Types Packs/Day Years Used Date Smoking Tobacco: Never Smokeless Tobacco: Never Tobacco Cessation:Counseling Given: Not Answered AUDIT-C Answer Date Recorded Frequency of Alcohol Consumption Not on file 07/30/2022 Q2: How many drinks containi ng alcohol do you have on a typical day when you are drinking? Patient does not drink Frequency of Binge Drinking Not on file 07/21 Personal Safety Answer Date Recorded Have you ever been in or are you currently in a harmful physical or emotional relationship or is someone making you feel afraid or unsafe? 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 Gender Identity Not on file Sexual Orientation Not on file Last Filed Vital Signs Vital Sign Reading Time Taken Comments Blood Pressure 128/58 08/01/2022 8:15 AM CDT Pulse 76 08/01/2022 8:15 AM CDT Temperature 36.5 C (97.7 F) 08/01/2022 8:15 AM CDT Respiratory Rate 16 08/01/2022 8:15 AM CDT Oxygen Saturation 99% 08/01/2022 8:15 AM CDT Inhaled Oxygen Concentration - - Weight 100.5 kg (221 lb 9.6 oz) 025 10:37 AM TRACTOR OPERATOR Height 161.3 cm (5' 3.5 ) 04/26/2024 10 :37 AM TRACTOR OPERATOR Body Mass Index 38.64 04/26/2024 10:37 AM TRACTOR OPERATOR Plan of Treatment Not on file Medical Devices Implanted Type Area Paint Stockman Device Identifier Shelf Expiration Date Model / Serial / Lot [employer] Simplex P Full Dose Radiopaque Preblend Cement Bone Tobramycin 6197-9-010 - [id number] Implanted:Qty: 1 on 07/30/2022 by Shreyas Persaud MD at [facility] Right: Knee [employer] 10/21/2023 6197-9-010 / / [id number] [employer]hew[employer]O rtho Legion 18mm Knee Short Cone Wedge Tibial Sterile [id number] - [id number] - [id number] Implanted:Qty: 1 on 07/30/2022 by Shreyas Persaud MD at [facility] [employer]Rich[employer]/O rtho 05/23/2032 [id number] / [id number] / [employer]O rtho Legion 10mm 220mm Pressfit Knee Straight Stem Femoral [id number] - [id number] - [id number] Implanted:Qty: 1 on 07/30/2022 by Shreyas Persaud MD at [facility] Right: Knee [employer]/Rich[employer]/O rtho 02/06/2025 [id number] / [id number] / [employer]O rtho Legion Revision Knee Right 3 Baseplate Tibial [id number] - [id number] Implanted:Qty: 1 on 07/30/2022 by Shreyas Persaud MD at [facility] Right: Knee [employer]/Richco/O rtho 05/30/2032 [id number] / / [employer] Nexgen 15-30mm Knee 67mm Cone Large Step Augment Tibial [id number] - [id number] Implanted:Qty: 1 on 07/30/2022 by Shreyas Persaud MD at [facility] Right: Knee [employer] [id number] 03/22/2024 [id number] / / [id number] Screw On De Tibal Wedge Implanted:Qty: 1 on 07/30/2022 by Shreyas Persaud MD at [facility] Right: Knee [employer] 01/28/2025 / [id number] / [employer] Simplex P Full Dose Radiopaque Preblend Cement Bone Tobramycin 6197-9-010 - [id number] Implanted:Qty: 1 on 07/30/2022 by Shreyas Persaud MD at [facility] Right: Knee [employer] 12/21/2023 6197-9-010 / / [id number] [employer]Rich[employer]/O rtho Ashleigh Ii 15mm Posterior Stabilized Constrained Knee 3-4 Insert [id number] - [id number] Implanted:Qty: 1 on 07/30/2022 by Shreyas Persaud MD at [facility] Right: Knee [employer]Rich[employer]/O rtho [id number] 12/08/2030 [id number] / / [id number] [employer]/O rtho Ashleigh Ii 15mm Posterior Stabilized Constrained Knee 3-4 Insert [id number] - [id number] Implanted:Qty: 1 on 07/30/2022 by Shreyas Persaud MD at [facility] Right: Knee [employer]/Rich[employer]/O rtho [id number] 12/08/2030 [id number] / / [id number] Insurance [facility] [employer] [facility] [employer] Advance Directives For more information, please contact: [phone] * Full Code (Latest Code Status on File) Date Activated Date Inactivated Comments 07/30/2022 5:13 PM 08/01/2022 5:34 PM Care Teams Co Op Relationship Specialty Start Date End Date Shani See NP [address] [place] [address] PCP - General Green Chain Offbearer 04/22/22
--- OUTSIDE RECORDS SUMMARY | 2024-08-02 08:03 | XMS_ITS | Clinical Summary ---
Author Organization [facility] Address [facility] [place] [address] Care Team Providers Care Specialty Foods Cook Name Role Phone Sherrill Jovel MD Primary Care Provider [phone] Allergies No known active allergies Medications allopurinol (ZYLOPRIM) 300 MG tablet Take 300 mg by mouth daily. Active propranolol (INDERAL) 40 MG tablet Take 40 mg by mouth 2 (two) times daily. Active celecoxib (CELEBREX) 200 MG capsule Take 200 mg by mouth 2 (two) times daily. Active triamterene-hydr oCHLOROthiazide (MAXZIDE-25) 37.5-25 MG tablet Take 1 tablet by mouth daily. Active lisinopril (PRINIVIL) 10 MG tablet Take 10 mg by mouth daily. Active escitalopram (LEXAPRO) 10 MG tablet Take 10 mg by mouth daily. Active omeprazole (PRILOSEC) 20 MG capsule Take 20 mg by mouth daily. Active levothyroxine (SYNTHROID) 75 MCG tablet Take 75 mcg by mouth every morning. Active cetirizine (ZYRTEC) 10 MG chewable tablet Chew 10 mg by mouth daily. Active Social History Tobacco Use Types Packs/Day Years Used Date Smoking Tobacco: Never Smokeless Tobacco: Never Tobacco Cessation:Counseling Given: Not Answered Alcohol Use Standard Drinks/Week Comments Never 0 (1 standard drink = 0.6 oz pur e alcohol) Comments No Sex and Gender Information Value Date Recorded Sex Assigned at Not on file Legal Sex Female 7:49 AM FUNERAL PRE ARRANGEMENT COUNSELOR Gender Identity Not on file Sexual Orientation Not on file Last Filed Vital Signs Vital Sign Reading Time Taken Comments Blood Pressure 131/49 02/17/2022 11:19 AM FUNERAL PRE ARRANGEMENT COUNSELOR Pulse 60 02/17/2022 11:19 AM FUNERAL PRE ARRANGEMENT COUNSELOR Temperature 36.2 C (97.2 F) 02/17/2022 9:25 AM FUNERAL PRE ARRANGEMENT COUNSELOR Respiratory Rate 18 02/17/2022 9:25 AM FUNERAL PRE ARRANGEMENT COUNSELOR Oxygen Saturation 96% 02/17/2022 11:19 AM FUNERAL PRE ARRANGEMENT COUNSELOR Inhaled Oxygen Concentration - - Weight 96.2 kg (212 lb) 02/03/2022 1:23 PM FUNERAL PRE ARRANGEMENT COUNSELOR Height 160 cm (5' 3 ) 02/03/2022 1:23 PM FUNERAL PRE ARRANGEMENT COUNSELOR Body Mass Index 37.55 02/03/2022 1:23 PM FUNERAL PRE ARRANGEMENT COUNSELOR Plan of Treatment Health Maintenance Due Date Last Done Comments Colorectal Cancer Screening Colonoscopy (10 Years) 1955 Hepatitis C 11/06/1973 DTaP, Tdap and Td Vaccines ( 1 - Tdap) 11/06/1974 Mammogram Screening 1995 Pneumococcal Vaccine: 50+ Years (1 of 1 - PCV) 11/06/2005 Zoster Vaccines (1 of 2) 11/06/2005 Annual Medicare Wellness Visit 11/06/2020 Dexa Scan (General) 11/06/2020 COVID-19 Vaccine (3 - 2023-2 5 season) 2023 06/14/2020, 05/24/2020 RSV Immunization or 60+ Years (1 - 1-dose 75+ series) 11/06/2030 Meningococcal B Vaccine Aged Out No l onger eligible based on patient's age to complete this topic Meningococcal Vaccine Aged Out No porter mariano eligible based on patient's age to complete this topic RSV Immunizations Under 20 Months Aged Out No longer eligible b ased on patient's age to complete this topic Medical Devices Implanted Type Area Structures Engineer Device Identifier Shelf Expiration Date Model / Serial / Lot Clareon Iol Aspheric Hydrophobic Acrylic Iol Implanted:Qty: 1 on 02/17/2022 by Bruce Coulter MD at [facility] Right: Eye [employer] 06/03/2024 [id number] / [id number] / Insurance MEDICARE [facility] Care Teams Specialty Foods Cook Relationship Specialty Start Date End Date Sherrill Jovel MD [address] [facility] [address] [place] [address] PCP - General FAMILY PRACTICE 02/17/22
--- OUTSIDE RECORDS SUMMARY | 2024-08-02 08:03 | XMS_ITS | Encounter Summary ---
Author Organization [facility] Address [address] [place] [address] Care Team Providers Care Fiscal Analyst Name Role Phone Sherrill Jovel MD Primary Care Provider +1- [phone] Encounter Details Date Type Department Care Team (Late st Contact Info) Description 02/17/2022 Prep for Procedure [facility] [address] [place], [place] [id number] Bruce Coulter MD [address] [facility] [address] [place] [address] Social History Tobacco Use Types Packs/Day Years Used Date Smoking Tobacco: Never Smokeless Tobacco: Never Alcohol Use Standard Drinks/Week Comments Never 0 (1 standard drink = 0.6 oz pur e alcohol) Comments No Sex and Gender Information Value Date Recorded Sex Assigned at Not on file Legal Sex Female 7:49 AM DRY JANITOR Gender Identity Not on file Sexual Orientation Not on file COVID-19 Exposure Response Date Recorded In the last 10 days, have yo u been in contact with someone who was confirmed or suspected to have Coronavirus/COVID-19? No / Unsure 02/17/2022 8:52 AM DRY JANITOR documented as of this encounter Plan of Treatment Not on file documented as of this encounter Visit Diagnoses Not on filedocumented in this encounter Care Teams Fiscal Analyst Relationship Specialty Start Date End Date Sherrill Jovel MD [address] [facility] [address] [place] [address] PCP - General FAMILY PRACTICE 02/17/22 documented as of this encounter
--- OUTSIDE RECORDS SUMMARY | 2024-08-02 08:03 | XMS_ITS | Clinical Summary ---
Author Organization [facility] Address [address] [place] [address] Care Team Providers Care Dry Wall Finisher Name Role Phone Shani See NP Primary Care Provider [phone]- [phone] Allergies No known active allergies Medications allopurinoL [...] 1 tablet (75 mcg total) by mouth outsole cutter machine before breakfast 3 Active lisinopriL (PRINIVIL,ZESTRI L) [...] (06/25/2022): Added automatically from request for surgery [id number] Surgical follow-up care 11/09/2012 Knee pain 10/08/2012 Surgical History Surgery Date Site/Laterality Comments KNEE ARTHROPLASTY REVISION TOTAL KNEE ARTHROPLASTY early and 2012 CATARACT EXTRACTION HAND SURGERY x2 carpal tunnel TONSILLECTOMY THYROIDECTOMY x2 THROAT SURGERY x3 CYST REMOVAL cyst removed from vocal cords (age 9 & 11) TUBAL LIGATION Medical History Medical History Date Comments Aftercare following joint re placement surgery Aftercare following joint re placement - (Added by TW Conv) Osteoarthritis Hypothyroidism Hypertension GERD (gastroesophageal reflux disease) Obesity Gout Motion sickness Social History Tobacco Use Types Packs/Day Years [...] on file Legal Sex Female 11:50 PM FLUE GAS ANALYST Gender Identity Not on file Sexual Orientation Not on file Obstetrics History Last Filed Vital Signs Vital Sign Reading Time Taken Comments Blood Pressure 128/58 08/01/2022 8:15 AM CDT Pulse 76 08/01/2022 8:15 AM CDT Temperature 36.5 C (97.7 F) 08/01/2022 8:15 AM CDT Respiratory Rate 16 08/01/2022 8:15 AM CDT Oxygen Saturation 99% 08/01/2022 8:15 AM CDT Inhaled Oxygen Concentration - - Weight 100.5 kg (221 lb 9.6 oz) 025 10:37 AM FLUE GAS ANALYST Height 161.3 cm (5' 3.5 ) 04/26/2024 10 :37 AM FLUE GAS ANALYST Body Mass Index 38.64 04/26/2024 10:37 AM FLUE GAS ANALYST Plan of Treatment Health Maintenance Due Date Last Done Comments Breast Cancer Screening-Mammogram 1955 Colon Cancer Screening-Colonoscopy 1955 Depression Screening 1955 Hepatitis C Screening 1955 Osteoporosis Screening-Bone Density Scan 1955 DTaP/Tdap/Td Vaccine (1 - Tdap) 11/06/1966 Hepatitis B Screening 11/06/1973 Pneumococcal vaccine 65+ (1 of 1 - PCV) 11/06/2005 Zoster Vaccine (1 of 2) 11/06/2005 Well Visit 65+ 11/06/2020 Fall Risk Assessment 08/02/2023 08/01/2022 Covid-19 Vaccine ( season) 2023, 05/24/2020 Influenza Vaccine (#1) 2023 Medical Devices Implanted Type Area Heating Equipment Repairer Device Identifier Shelf Expiration Date Model / Serial / Lot [employer] Simplex P Full Dose Radiopaque Preblend Cement Bone Tobramycin 6197-9-010 - [id number] Implanted:Qty: 1 on 07/30/2022 by Shreyas Persaud MD at [facility] Right: Knee [employer] 10/21/2023 6197-9-010 / / [id number] [employer] r[employer]o Legion 18mm Knee Short Cone Wedge Tibial Sterile [id number] - [id number] - [id number] Implanted:Qty: 1 on 07/30/2022 by Shreyas Persaud MD at [facility] [employer]/O rtho 05/23/2032 [id number] / [id number] / [employer] r[employer]o Legion 10mm 220mm Pressfit Knee Straight Stem Femoral [id number] - [id number] - [id number] Implanted:Qty: 1 on 07/30/2022 by Shreyas Persaud MD at [facility] Right: Knee [employer] rtho 02/06/2025 [id number] / [id number] / [employer]O rtho Legion Revision Knee Right 3 Baseplate Tibial [id number] - [id number] Implanted:Qty: 1 on 07/30/2022 by Shreyas Persaud MD at [facility] Right: Knee [employer]O rtho 05/30/2032 [id number] / / [employer] Nexgen 15-30mm Knee 67mm Cone Large Step Augment Tibial [id number] - [id number] Implanted:Qty: 1 on 07/30/2022 by Shreyas Persaud MD at [facility] Right: Knee [employer] [id number] 03/22/2024 [id number] / / [id number] Screw On De Tibal Wedge Implanted:Qty: 1 on 07/30/2022 by Shreyas Persaud MD at [facility] Right: Knee [employer] 01/28/2025 / [id number] / [employer] Simplex P Full Dose Radiopaque Preblend Cement Bone Tobramycin 6197-9-010 - [id number] Implanted:Qty: 1 on 07/30/2022 by Shreyas Persaud MD at [facility] Right: Knee [employer] 12/21/2023 6197-9-010 / / [id number] [employer]Rich[employer]/O rtho Ashleigh Ii 15mm Posterior Stabilized Constrained Knee 3-4 Insert [id number] - [id number] Implanted:Qty: 1 on 07/30/2022 by Shreyas Persaud MD at [facility] Right: Knee [employer]/O rtho [id number] 12/08/2030 [id number] / / [id number] [employer] rtho Ashleigh Ii 15mm Posterior Stabilized Constrained Knee 3-4 Insert [id number] - [id number] Implanted:Qty: 1 on 07/30/2022 by Shreyas Persaud MD at [facility] Right: Knee [employer]Rich[employer]/O rtho [id number] 12/08/2030 [id number] / / [id number] Insurance [facility]ICARE [facility] Address: [address] [address] [place] [address] MEDICARE [facility] Address: [address] [address] [place] [address] Advance Directives For more information, please contact: [phone] * Full Code (Latest Code Status on File) Date Activated Date Inactivated Comments 07/30/2022 5:13 PM 08/01/2022 5:34 PM Care Teams Dry Wall Finisher Relationship Specialty Start Date End Date Shani See NP [address] [place] [address] PCP - General Clay Carman 04/22/22
--- NOTE | 2024-08-02 08:05 | WPDHPUPDATE1 ---
History and Physical Update Update Date/Time: 08/02/24 08:05 History and Physical has been reviewed, including an updated exam of the patient. There are NO changes in the patient's condition. Risks, benefits, and alternatives have been discussed and questions answered. Patient agrees to proceed with procedure.
--- NOTE | 2024-08-02 08:06 | W.PM.PROC2 ---
Procedure Note - Detailed Date of Procedure 08/02/24 Pre-op Diagnosis Lumbosacral spondylosis, chronic low back pain Post-op Diagnosis Same Procedure Performed Diagnostic bilateral Lumbar Medial Branch/Dorsal Ramus Blocks at L3, L4, L5 Treating the bilateral L4-5, L5-S1 Facet Joints Under Fluoroscopic Guidance and with Contrast Control. (4 levels blocked). Surgeon Ruben Forde MD Javascript Application Developer None. Anesthesia Local Description of Procedure INFORMED CONSENT: Risks, benefits and alternatives to the procedure were discussed in detail with the patient who expressed explicit understanding and consent to proceed. Patient was informed verbally and in written form regarding the risks associated with the procedure including the low risk of serious infection, bleeding/bruising, allergic reaction, nerve or organ injury, paralysis, procedural site pain or discomfort, worsening pain and/or mobility, failure to treat and/or disfigurement. The patient expressed explicit understanding and consent to proceed. All materials required for the procedure were available prior to procedure start. Site and side were marked prior to procedure and confirmed in the presence of the patient. PROCEDURE IN DETAIL: The patient was brought to the procedural suite and placed in the prone position. Patient was made comfortable with use of pillows under the head/chest, hips and ankles. Skin overlying the injection site on the affected side(s) was prepared broadly with ChloraPrep applicator and draped in a sterile manner. Aseptic technique was used throughout. The endplates of the vertebral bodies at the site(s) of interest were aligned in the AP view. Ipsilateral oblique angulation was utilized to optimize visualization of the intersection between the superior articulating process and transverse process at each target site. Local anesthesia was established by infiltration with approximately 5 mL of 1% lidocaine via a 1-1/2 inch 27-gauge needle. A 25-gauge 5.0 inch Quincke spinal needle was advanced until the needle tip contacted periosteum at the target site, right L3. Lateral view was utilized to confirm the appropriate placement of the needle tip just anterior to the facet line and superior to the pedicle. In the Lateral view, 0.25 mL of Omnipaque 300 contrast medium was injected after negative aspiration for CSF, blood or other bodily fluid, showing appropriate extra-articular spread of contrast without evidence of intravascular, foraminal or intrathecal placement. A 0.5 mL solution of 2.0% PF lidocaine was injected after negative repeat aspiration. Appropriate spread of the injectate was confirmed with washout of previously injected contrast. No parasthesias were elicited. Needle was removed completely intact without difficulty. The same exact procedure was repeated for all remaining levels on the ipsilateral side, right L4, L5 medial branches/dorsal ramus, modified as necessary to accommodate for the new target location with identical findings and results and no evidence of complication. The same exact procedure was repeated for all remaining levels on the contralateral side, left L3, L4, L5 medial branches/dorsal ramus, modified as necessary to accommodate for the new target location with identical findings and results and no evidence of complication. Images were saved and documented in the patient chart. Patient's skin was cleaned and sterile bandage applied. The patient tolerated the procedure well. The patient was transported to the recovery area in stable condition where they were observed for an appropriate amount of time prior to discharge, without evidence of complication. Patient was instructed on the appropriate completion of a pain diary over the next 12-24 hours. The patient was instructed to avoid excessive activity for the next 48 hours, including climbing and frequent use of stairs. Showers only for 48 hours. They were instructed not to drive or operate heavy machinery for 24 hours. They are to monitor for severe headaches, fevers, chills, night sweats, erythema/swelling at the site or any other signs of infection, bleeding/bruising, bowel or bladder changes as well as new pain, weakness or numbness in the upper or lower extremity. Should they notice these changes, they are instructed to call our office immediately or report directly to the nearest Emergency Department if no answer or if after posted office hours. COMPLICATIONS: None COMMENTS: None CONTRAST WASTED: 28.5mL Omnipaque 300. Complications No immediate complications Condition Stable Disposition Same day [facility] Billing Surgery - Charge Forward: Surgery Billing
[2024-08-02 08:23] VITALS: BP 147/77; PULSE 74; RESP 16; TEMP 36.8; O2SAT 97
[2024-08-02 09:01] VITALS: BP 180/84; PULSE 81; RESP 26; O2SAT 98
[2024-08-02 09:11] VITALS: BP 160/69; PULSE 75; RESP 21; O2SAT 99
[2024-08-02] MEDS: LIDOCAINE 1% PF INJ 5 ML VIAL INFILTRATE (09:11)
[2024-08-02] MEDS: LIDOCAINE 2% PF LOCAL INJ 5 ML VIAL INFILTRATE (09:12)
[2024-08-02 09:20] VITALS: BP 123/70; PULSE 77; RESP 18; O2SAT 97
== END 2024-08-02 09:35 | disposition home or self-care (01) ==
PROVIDERS: PCP Physician Assistant; Visit Provider Anesthesiology Pain Medicine
PROC: (CPT 64493; principal; 2024-08-02 09:30)
DX: M47.817 Spondylosis without myelopathy or radiculopathy, lumbosacral region (principal); G89.29 Other chronic pain
CPT/HCPCS: 64493 ×2; 64494 ×2; 64495 ×2; 99199

== ENCOUNTER 2024-08-25 13:19 | Outpatient (CLI) | payer MEDICARE, SELFPAY ==
--- NOTE | 2024-08-25 13:44 | ECG_ITS ---
Test Date: 2024-08-25 13:57:32 Measurements Intervals Stella Rate: 67 P: -9 IL: 161 QRS: 7 QRSD: 89 T: 47 QT: 374 QTc: 396 Interpretive Statements SINUS RHYTHM DELAYED PRECORDIAL R/S TRANSITION VOLTAGE CRITERIA FOR LVH CONSIDER INFERIOR INFARCT, AGE INDETERMINATE BASELINE ARTIFACT- I, II, III, AVR, AVL, AVF ABNORMAL ECG No previous ECG available for comparison Electronically Signed On 08-25-2024 16:02:12 CDT by Eloy Zapata D.O.
--- OUTSIDE RECORDS SUMMARY | 2024-08-25 13:56 | XMS_ITS | Referral Summary ---
Author Organization [facility] Address [address] [place] [address] Care Team Providers Care Pipe Fitter Helper Name Role Phone Shani See NP Primary Care Provider +1- [phone] Allergies No known active allergies Medications allopurinoL [...] 1 tablet (75 mcg total) by mouth lidder before breakfast 3 Active lisinopriL (PRINIVIL,ZESTRI L) [...] (06/25/2022): Added automatically from request for surgery [id number] Surgical follow-up care 11/09/2012 Knee pain 10/08/2012 [...] on file Legal Sex Female 11:50 PM MANAGER GROCERY Gender Identity Not on file Sexual Orientation [...] (221 lb 9.6 oz) 025 10:37 AM MANAGER GROCERY Height 161.3 cm (5' 3.5) 04/26/2024 10 :37 AM MANAGER GROCERY Body Mass Index 38.64 04/26/2024 10:37 AM MANAGER GROCERY Plan of Treatment Not on file Medical Devices Implanted Type Area Pulmonary Fellow Device Identifier Shelf Expiration Date Model / Serial / Lot [employer] Simplex P Full Dose Radiopaque Preblend Cement Bone Tobramycin 6197-9-010 - [id number] Implanted:Qty: 1 on 07/30/2022 by Shreyas Persaud MD at [facility] Right: Knee [employer] 10/21/2023 6197-9-010 / / [id number] [employer] Legion 18mm Knee Short Cone Wedge Tibial Sterile [id number] - [id number] - [id number] Implanted:Qty: 1 on 07/30/2022 by Shreyas Persaud MD at [facility] [employer] 05/23/2032 [id number] / [id number] / [employer] Legion 10mm 220mm Pressfit Knee Straight Stem Femoral [id number] - [id number] - [id number] Implanted:Qty: 1 on 07/30/2022 by Shreyas Persaud MD at [facility] Right: Knee [employer] 02/06/2025 [id number] / [id number] / [employer] Legion Revision Knee Right 3 Baseplate Tibial [id number] - [id number] Implanted:Qty: 1 on 07/30/2022 by Shreyas Persaud MD at [facility] Right: Knee [employer] 05/30/2032 [id number] / / [employer] Nexgen 15-30mm Knee 67mm Cone Large Step Augment Tibial [id number] - [id number] Implanted:Qty: 1 on 07/30/2022 by Shreyas Persaud MD at [facility] Right: Knee [employer] [id number] 03/22/2024 [id number] / / [id number] Screw On De Tibal Wedge Implanted:Qty: 1 on 07/30/2022 by Shreyas Persaud MD at [facility] Right: Knee [employer] 01/28/2025 / [id number] / [employer] Simplex P Full Dose Radiopaque Preblend Cement Bone Tobramycin 6197-9-010 - [id number] Implanted:Qty: 1 on 07/30/2022 by Shreyas Persaud MD at [facility] Right: Knee [employer] 12/21/2023 6197-9-010 / / [id number] [employer] Ashleigh Ii 15mm Posterior Stabilized Constrained Knee 3-4 Insert [id number] - [id number] Implanted:Qty: 1 on 07/30/2022 by Shreyas Persaud MD at [facility] Right: Knee [employer] [id number] 12/08/2030 [id number] / / [id number] [employer] Ashleigh Ii 15mm Posterior Stabilized Constrained Knee 3-4 Insert [id number] - [id number] Implanted:Qty: 1 on 07/30/2022 by Shreyas Persaud MD at [facility] Right: Knee [employer] [id number] 12/08/2030 [id number] / / [id number] Insurance [facility] ADVANTAGE [facility] Address: [address] [address] [facility] MEDICARE ADVANTAGE [facility] Address: [address] [address] [place] [address] Advance Directives For more information, please contact: [phone] * Full Code (Latest Code Status on File) Date Activated Date Inactivated Comments 07/30/2022 5:13 PM 08/01/2022 5:34 PM Care Teams Pipe Fitter Helper Relationship Specialty Start Date End Date Shani See NP [address] [place] [address] PCP - General Parts Coordinator 04/22/22
--- OUTSIDE RECORDS SUMMARY | 2024-08-25 13:56 | XMS_ITS | Clinical Summary ---
Author Organization [facility] Address [address] [place] [address] Care Team Providers Care Centrifugal Supervisor Name Role Phone Shani See NP Primary Care Provider +1- [phone] Allergies No known active allergies Medications allopurinoL [...] 1 tablet (75 mcg total) by mouth patient flow coordinator before breakfast 3 Active lisinopriL (PRINIVIL,ZESTRI L) [...] (06/25/2022): Added automatically from request for surgery [id number] Surgical follow-up care 11/09/2012 Knee pain 10/08/2012 [...] on file Legal Sex Female 11:50 PM NURSING SERVICE DIRECTOR Gender Identity Not on file Sexual Orientation [...] (221 lb 9.6 oz) 025 10:37 AM NURSING SERVICE DIRECTOR Height 161.3 cm (5' 3.5) 04/26/2024 10 :37 AM NURSING SERVICE DIRECTOR Body Mass Index 38.64 04/26/2024 10:37 AM NURSING SERVICE DIRECTOR Plan of Treatment Health Maintenance Due Date [...] Vaccine ( season) 2023, 05/24/2020 Influenza Vaccine (Season Ended) 2024 Medical Devices Implanted Type Area Ivory Carver Device Identifier Shelf Expiration Date Model / Serial / Lot [employer] Simplex P Full Dose Radiopaque Preblend Cement Bone Tobramycin 6197-9-010 - [id number] Implanted:Qty: 1 on 07/30/2022 by Shreyas Persaud MD at [facility] Right: Knee [employer] 10/21/2023 6197-9-010 / / [id number] [employer] Legion 18mm Knee Short Cone Wedge Tibial Sterile 69835721 - [id number] - [id number] Implanted:Qty: 1 on 07/30/2022 by Shreyas Persaud MD at [facility] [employer] 05/23/2032 [id number] / [id number] / [employer] Legion 10mm 220mm Pressfit Knee Straight Stem Femoral 89608073 - [id number] - [id number] Implanted:Qty: 1 on 07/30/2022 by Shreyas Persaud MD at [facility] Right: Knee [employer] 02/06/2025 [id number] / [id number] / [employer] Legion Revision Knee Right 3 Baseplate Tibial [id number] - [id number] Implanted:Qty: 1 on 07/30/2022 by Shreyas Persaud MD at [facility] Right: Knee [employer] 05/30/2032 [id number] / / [employer] Nexgen 15-30mm Knee 67mm Cone Large Step Augment Tibial [id number] - [id number] Implanted:Qty: 1 on 07/30/2022 by Shreyas Persaud MD at [facility] Right: Knee [employer] [id number] 03/22/2024 [id number] / / [id number] Screw On De Tibal Wedge Implanted:Qty: 1 on 07/30/2022 by Shreyas Persaud MD at [facility] Right: Knee [employer] 01/28/2025 / [id number] / [employer] Simplex P Full Dose Radiopaque Preblend Cement Bone Tobramycin 6197-9-010 - [id number] Implanted:Qty: 1 on 07/30/2022 by Shreyas Persaud MD at [facility] Right: Knee [employer] 12/21/2023 6197-9-010 / / [id number] [employer] Ashleigh Ii 15mm Posterior Stabilized Constrained Knee 3-4 Insert [id number] - [id number] Implanted:Qty: 1 on 07/30/2022 by Shreyas Persaud MD at [facility] Right: Knee [employer] [id number] 12/08/2030 [id number] / / [id number] [employer] Ashleigh Ii 15mm Posterior Stabilized Constrained Knee 3-4 Insert [id number] - [id number] Implanted:Qty: 1 on 07/30/2022 by Shreyas Persaud MD at [facility] Right: Knee [employer] [id number] 12/08/2030 [id number] / / [id number] Insurance MEDICARE ADVANTAGE MEDICARE ADVANTAGE Advance Directives For more information, please contact: [phone] * Full Code (Latest Code Status on File) Date Activated Date Inactivated Comments 07/30/2022 5:13 PM 08/01/2022 5:34 PM Care Teams Centrifugal Supervisor Relationship Specialty Start Date End Date Shani See NP [address] [place] [address] PCP - General Trial Court Justice 04/22/22
[2024-08-25 14:22] LABS: Anion Gap 9 mmol/L (4-12); Blood Urea Nitrogen 18 mg/dL (7-17); Carbon Dioxide 26 mmol/L (22-30); Chloride 100 mmol/L (98-107); Estimated Glomerular Filt Rate 52; Glucose 167 mg/dL (65-110); Potassium 4.4 mmol/L (3.4-5.0); Sodium 135 mmol/L (137-145)
== END 2024-08-25 13:20 | disposition home or self-care (01) ==
PROVIDERS: PCP Physician Assistant; Visit Provider Anesthesiology
DX: Z01.818 Encounter for other preprocedural examination (principal); R94.31 Abnormal electrocardiogram [ECG] [EKG]; E11.9 Type 2 diabetes mellitus without complications; E78.5 Hyperlipidemia, unspecified; I10 Essential (primary) hypertension
CPT/HCPCS: 36415; 80048; 93005

== ENCOUNTER 2024-09-06 06:10 | Day surgery (SDC) | payer MEDICARE, SELFPAY ==
[2024-08-17 11:22] VITALS: BMI 37.6
[2024-08-23 09:16] VITALS: BMI 37.6
--- NOTE | ~2024-09-06 | XR_ITS ---
INTRAOPERATIVE FLUOROSCOPY: CLINICAL HISTORY: 68 years old Female; THERMAL RADIOFREQUENCY ABLATION BILATERAL L3 L4 L5 MEDIAL BR PROCEDURE COMMENTS: Limited intraoperative fluoroscopy of the lumbar spine was performed. CUMULATIVE DOSE: 66 mGy FLUOROSCOPY TIME: 107 seconds FINDINGS/IMPRESSION: Please refer to operative note for further details. Reviewed, dictated and finalized at location A.
--- NOTE | 2024-09-06 06:29 | WPDHPUPDATE1 ---
History and Physical Update Update Date/Time: 09/06/24 06:29 History and Physical has been reviewed, including an updated exam of the patient. There are NO changes in the patient's condition. Risks, benefits, and alternatives have been discussed and questions answered. Patient agrees to proceed with procedure.
--- OUTSIDE RECORDS SUMMARY | 2024-09-06 06:30 | XMS_ITS | Referral Summary ---
Author Organization [facility] Address [address] [place] [address] Care Team Providers Care Anesthesiology Teacher Name Role Phone Shani See NP Primary Care Provider +1- [phone] Allergies No known active allergies Medications allopurinoL [...] 1 tablet (75 mcg total) by mouth spring up supervisor before breakfast 3 Active lisinopriL (PRINIVIL,ZESTRI L) [...] (06/25/2022): Added automatically from request for surgery [id number] Surgical follow-up care 11/09/2012 Knee pain 10/08/2012 [...] on file Legal Sex Female 11:50 PM PLASTIC FRAME INSERTER Gender Identity Not on file Sexual Orientation [...] (221 lb 9.6 oz) 025 10:37 AM PLASTIC FRAME INSERTER Height 161.3 cm (5' 3.5) 04/26/2024 10 :37 AM PLASTIC FRAME INSERTER Body Mass Index 38.64 04/26/2024 10:37 AM PLASTIC FRAME INSERTER Plan of Treatment Not on file Medical Devices Implanted Type Area Glove Pairer Device Identifier Shelf Expiration Date Model / Serial / Lot [employer] Simplex P Full Dose Radiopaque Preblend Cement Bone Tobramycin 6197-9-010 - [id number] Implanted:Qty: 1 on 07/30/2022 by Shreyas Persaud MD at [facility] Right: Knee [employer] 10/21/2023 6197-9-010 / / [id number] [employer] Legion 18mm Knee Short Cone Wedge Tibial Sterile 23841546 - [id number] - [id number] Implanted:Qty: 1 on 07/30/2022 by Shreyas Persaud MD at [facility] [employer] 05/23/2032 [id number] / [id number] / [employer] Legion 10mm 220mm Pressfit Knee Straight Stem Femoral 41685576 - [id number] - [id number] Implanted:Qty: 1 on 07/30/2022 by Shreyas Persaud MD at [facility] Right: Knee [employer] 02/06/2025 [id number] / [id number] / [employer] Legion Revision Knee Right 3 Baseplate Tibial 76429618 - [id number] Implanted:Qty: 1 on 07/30/2022 by Shreyas Persaud MD at [facility] Right: Knee [employer] 05/30/2032 [id number] / / [employer] Nexgen 15-30mm Knee 67mm Cone Large Step Augment Tibial [id number] - [id number] Implanted:Qty: 1 on 07/30/2022 by Shreyas Persaud MD at [facility] Right: Knee [employer] [id number] 03/22/2024 [id number] / / [id number] Screw On De Tibal Wedge Implanted:Qty: 1 on 07/30/2022 by Shreyas Persaud MD at [facility] Right: Knee [employer] 01/28/2025 / [id number] / [employer] Simplex P Full Dose Radiopaque Preblend Cement Bone Tobramycin 6197-9-010 - [id number] Implanted:Qty: 1 on 07/30/2022 by Shreyas Persaud MD at [facility] Right: Knee [employer] 12/21/2023 6197-9-010 / / [id number] [employer] Ashleigh Ii 15mm Posterior Stabilized Constrained Knee 3-4 Insert [id number] - [id number] Implanted:Qty: 1 on 07/30/2022 by Shreyas Persaud MD at [facility] Right: Knee [employer] [id number] 12/08/2030 [id number] / / [id number] [employer] Ashleigh Ii 15mm Posterior Stabilized Constrained Knee 3-4 Insert [id number] - [id number] Implanted:Qty: 1 on 07/30/2022 by Shreyas Persaud MD at [facility] Right: Knee [employer] [id number] 12/08/2030 [id number] / / [id number] Insurance [facility] MEDICARE [facility] Address: [address] [address] [facility] MEDICARE [facility] Address: [address] [address] [place] [address] Advance Directives For more information, please contact: [phone] * Full Code (Latest Code Status on File) Date Activated Date Inactivated Comments 07/30/2022 5:13 PM 08/01/2022 5:34 PM Care Teams Anesthesiology Teacher Relationship Specialty Start Date End Date Shani See NP [address] [place] [address] PCP - General Gang Saw Operator 04/22/22
--- OUTSIDE RECORDS SUMMARY | 2024-09-06 06:30 | XMS_ITS | Clinical Summary ---
Author Organization [facility] Address [address] [place] [address] Care Team Providers Care Campaign Advisor Name Role Phone Shani See NP Primary Care Provider +1- [phone] Allergies No known active allergies Medications allopurinoL [...] 1 tablet (75 mcg total) by mouth screen roller before breakfast 3 Active lisinopriL (PRINIVIL,ZESTRI L) [...] (06/25/2022): Added automatically from request for surgery [id number] Surgical follow-up care 11/09/2012 Knee pain 10/08/2012 [...] on file Legal Sex Female 11:50 PM YARN WINDER Gender Identity Not on file Sexual Orientation [...] (221 lb 9.6 oz) 025 10:37 AM YARN WINDER Height 161.3 cm (5' 3.5) 04/26/2024 10 :37 AM YARN WINDER Body Mass Index 38.64 04/26/2024 10:37 AM YARN WINDER Plan of Treatment Health Maintenance Due Date [...] Ended) 2024 Medical Devices Implanted Type Area Elevator Operator Freight Device Identifier Shelf Expiration Date Model / Serial / Lot [employer] Simplex P Full Dose Radiopaque Preblend Cement Bone Tobramycin 6197-9-010 - [id number] Implanted:Qty: 1 on 07/30/2022 by Shreyas Persaud MD at [facility] Right: Knee [employer] 10/21/2023 6197-9-010 / / [id number] [employer] Legion 18mm Knee Short Cone Wedge Tibial Sterile 81483389 - [id number] - [id number] Implanted:Qty: 1 on 07/30/2022 by Shreyas Persaud MD at [facility] [employer] 05/23/2032 [id number] / [id number] / [employer] Legion 10mm 220mm Pressfit Knee Straight Stem Femoral 69268022 - [id number] - [id number] Implanted:Qty: 1 on 07/30/2022 by Shreyas Persaud MD at [facility] Right: Knee [employer] 02/06/2025 [id number] / [id number] / [employer] Legion Revision Knee Right 3 Baseplate Tibial [id number] - [id number] Implanted:Qty: 1 on 07/30/2022 by Shreyas Persaud MD at [facility] Right: Knee [employer] 05/30/2032 [id number] / / [employer] Nexgen 15-30mm Knee 67mm Cone Large Step Augment Tibial [id number] - [id number] Implanted:Qty: 1 on 07/30/2022 by Shreyas Persaud MD at [facility] Right: Knee [employer] [id number] 03/22/2024 [id number] / / [id number] Screw On De Tibal Wedge Implanted:Qty: 1 on 07/30/2022 by Shreyas Persaud MD at [facility] Right: Knee [employer] 01/28/2025 / [id number] / [employer] Simplex P Full Dose Radiopaque Preblend Cement Bone Tobramycin 6197-9-010 - [id number] Implanted:Qty: 1 on 07/30/2022 by Shreyas Persaud MD at [facility] Right: Knee [employer] 12/21/2023 6197-9-010 / / [id number] [employer] Ashleigh Ii 15mm Posterior Stabilized Constrained Knee 3-4 Insert [id number] - [id number] Implanted:Qty: 1 on 07/30/2022 by Shreyas Persaud MD at [facility] Right: Knee [employer] [id number] 12/08/2030 [id number] / / [id number] [employer] Ashleigh Ii 15mm Posterior Stabilized Constrained Knee 3-4 Insert [id number] - [id number] Implanted:Qty: 1 on 07/30/2022 by Shreyas Persaud MD at [facility] Right: Knee [employer] [id number] 12/08/2030 [id number] / / [id number] Insurance MEDICARE ADVANTAGE MEDICARE ADVANTAGE Advance Directives For more information, please contact: [phone] * Full Code (Latest Code Status on File) Date Activated Date Inactivated Comments 07/30/2022 5:13 PM 08/01/2022 5:34 PM Care Teams Campaign Advisor Relationship Specialty Start Date End Date Shani See NP [address] [place] [address] PCP - General It Service Delivery Manager 04/22/22
--- NOTE | 2024-09-06 06:31 | W.PM.PROC2 ---
Procedure Note - Detailed Date of Procedure 09/06/24 Pre-op Diagnosis Lumbosacral spondylosis, chronic low back pain Post-op Diagnosis Same Procedure Performed Thermal Radiofrequency Ablation of the Bilateral Lumbar Medial Branches/Dorsal Ramus at the L3, L4, L5 Levels Treating the Bilateral L4-5, L5-S1 Facet Joints Under Fluoroscopic Guidance (4 Levels Treated). Surgeon Ruben Forde MD Granite Cutter None. Anesthesia Local (w/ MAC) Description of Procedure INFORMED CONSENT: Risks, benefits and alternatives to the procedure were discussed in detail with the patient who expressed explicit understanding and consent to proceed. Patient was informed verbally and in written form regarding the risks associated with the procedure including the low risk of serious infection, bleeding/bruising, allergic reaction, nerve or organ injury, paralysis, procedural site pain or discomfort, worsening pain and/or mobility, failure to treat and/or disfigurement. The patient expressed explicit understanding and consent to proceed. All materials required for the procedure were available prior to procedure start. Site and side were marked prior to procedure and confirmed in the presence of the patient. PROCEDURE IN DETAIL: The patient was brought to the procedural suite and placed in the prone position. Patient was made comfortable with use of pillows under the head/chest, hips and ankles. ASA standard monitors were applied and used throughout the procedure. Skin overlying the injection site on the affected side(s) was prepared broadly with ChloraPrep applicator and draped in a sterile manner. Aseptic technique was used throughout. The endplates of the vertebral bodies at the site(s) of interest were aligned in the AP view. Ipsilateral oblique angulation was utilized to optimize visualization of the intersection between the superior articulating process and transverse process at each target site. Local anesthesia was established by infiltration with approximately 5 mL of 1% lidocaine via a 1-1/2 inch 27-gauge needle divided over each site treated. A 16-gauge 150mm Northern Brewerian RF needle with curved 10mm active tip was advanced in the AP view until the needle tip contacted the periosteum at the target site, the right L3 medial branch. Lateral view was utilized to adjust and confirm the appropriate placement of the needle tip just anterior to the facet line, superior to the pedicle and posterior to the foramen. Grounding electrode was in place and functioning. The appropriately-sized RF cannula was inserted into the RF needle and motor stimulation was performed with no subjective or objective evidence of recruited muscle activity with stimulation up to 2.0 volts at a frequency of 2Hz. 1.5 mL of 2.0% PF lidocaine was injected after negative aspiration. After a 90s pause, lesioning was performed to 90 degrees centigrade for 90s ensuring lack of symptoms in the extremity throughout. Needle was rotated 180 degrees and lesioning repeated in a similar manner. Patient tolerated this well. No parasthesias were elicited. Needle was removed completely intact without difficulty. The same procedure was repeated for all intended levels/ structures on the ipsilateral side, right L4, L5 medial branch/dorsal ramus with identical methodology, modified to compensate for new location, with similar results and no evidence of complication. The same exact procedure was repeated for all remaining levels on the contralateral side, left L3, L4, L5 medial branches/dorsal ramus, modified as necessary to accommodate for the new target location with identical findings/results and no evidence of complication. Images were saved and documented in the patient chart. Patient's skin was cleansed and sterile bandage applied. The patient tolerated the procedure well. The patient was transported to the recovery area in stable condition where they were observed for an appropriate amount of time prior to discharge, without evidence of complication. The patient was instructed to avoid excessive activity for the next 48 hours, including climbing and frequent use of stairs. Showers only for 48 hours. They were instructed not to drive or operate heavy machinery for 24 hours. They are to monitor for severe headaches, fevers, chills, night sweats, erythema/swelling at the site or any other signs of infection, bleeding/bruising, bowel or bladder changes as well as new pain, weakness or numbness in the upper or lower extremity. Should they notice these changes, they are instructed to call our office immediately or report directly to the nearest Emergency Department if no answer or if after posted office hours. COMPLICATIONS: None COMMENTS: None Complications No immediate complications Condition Stable Disposition PACU [facility] Billing Surgery - Charge Forward: Surgery Billing
[2024-09-06 06:45] VITALS: BP 142/75; PULSE 77; RESP 16; TEMP 37.2; O2SAT 97
[2024-09-06 06:57] LABS: Glucose Point of Care 156 mg/dl (65-105)
--- NOTE | 2024-09-06 07:12 | WPDANESEPP ---
Anes - Eval Pre Procedure Procedure: Operation Date: 09/06/24 08:15 Proposed Procedures p Thermal Radiofrequency Ablation Bilateral L3, L4, L5 Medial Branch/Dorsal Ramus Addressing Bilateral L4-5, L5-S1 Facet Joints under Fluoroscopic Guidance with Contrast Control - Ruben Forde MD Date/Time: 09/06/24 07:12 Surgeon: PANCHO PIERSON Preop Diagnosis: LOWER BACK PAIN Pre Op Diagnosis: Lumbar Spinal Stenosis w/Neurogenic Claudication Patient Data Age: 68 Gender: F Height: 1.63 m Weight: 97.95 kg Last Vital Signs Temp 98.9 F 09/06/24 06:45 Pulse 77 09/06/24 06:45 Resp 16 09/06/24 06:45 BP 142/75 H 09/06/24 06:45 Pulse Ox 97 09/06/24 06:45 O2 Del Method Room Air 09/06/24 06:45 Allergies Allergy/AdvReac Type Severity Reaction Status Date / Time No Known Allergies Allergy Verified 09/06/24 06:43 Home Medications ?Medication ?Instructions ?Recorded ?Confirmed ?Type cetirizine 10 mg tablet (Zyrtec) 10 mg PO DAILY 09/02/23 09/06/24 History allopurinol 300 mg tablet 300 mg PO DAILY #90 tabs 01/01/24 09/06/24 Rx levothyroxine 75 mcg tablet 75 mcg PO DAILY #90 tabs 01/01/24 09/06/24 Rx lisinopril 10 mg tablet 10 mg PO DAILY #90 tabs 01/01/24 09/06/24 Rx metformin 500 mg tablet 500 mg PO BIDWMEAL #180 tabs 01/01/24 09/06/24 Rx alprazolam 0.5 mg tablet 0.5 mg PO DAILY anxiety #2 tabs 06/20/24 09/06/24 Rx celecoxib 200 mg capsule 200 mg PO BID PRN Pain #180 caps 06/29/24 09/06/24 Rx omeprazole 40 mg capsule,delayed 40 mg PO DAILY #90 caps 06/29/24 09/06/24 Rx release propranolol 40 mg tablet 40 mg PO BID #180 tabs 06/29/24 09/06/24 Rx duloxetine 30 mg capsule,delayed 30 mg PO DAILY #90 caps 07/15/24 09/06/24 Rx release (Cymbalta) triamterene 37.5 1 tablet PO QAM 08/23/24 09/06/24 History mg-hydrochlorothiazide 25 mg tablet Laboratory Tests 09/06/24 06:52 POC Capillary Glucose 156 H mg/dl (65-105) Patient hx anesthesia problems: none Family hx anesthesia problems: none Results Review: All pre-operative results and documents have been reviewed as part of the pre-operative evaluation. [facility], [facility] Past Medical History Medical History Diabetes type 2, controlled Chronic cough Cough HLD (hyperlipidemia) Hypothyroidism associated with surgical procedure Benign essential HTN Migraines Gout Chronic pain Arthritis BP (high blood pressure) Surgical History Surgical History History of arthroscopic knee surgery right knee 2007 H/O thyroidectomy History of total knee arthroplasty right knee x3 2007, 2011, 2013 left knee 2008 Family History Family History Sibling Cerebrovascular accident, Onset Age: 53 Mother Family history of diabetes mellitus in mother, Onset Age: 79 Social History Social History Social History: Smoking status: Never smoker Second hand tobacco smoke exposure: No Alcohol intake: unknown Substance use: never Substance use type: does not use Lack of Transportation: No Lack of Food: Never True Current Housing: I Have Housing Concerned About Future Housing: No Difficulty Paying Gas/Electric Bills: No Difficulty Paying for Meds: No Currently Unemployed: YES Education: Decline to Answer Difficulty w/ Childcare or Family Care: No Living arrangements: with family Occupation/Education: retired Gender identity (if verbalized by the patient): Female Sexual Orientation (if Verbalized by the Patient): Straight or Heterosexual Spiritual care concerns: No Exam Day of Procedure 09/06/24 07:12 Patient weight: obese (ASPIRATION,HYPOXIA) Heart: regular rate and rhythm Lungs: clear to auscultation Airway: Mallampati scale class II Neurological: alert and oriented
[2024-09-06] MEDS: LACTATED RINGERS 1,000 ML 30 ML IV CONT (07:37)
[2024-09-06] MEDS: LIDOCAINE 2% PF LOCAL INJ 5 ML VIAL 10 ML INFILTRATE (08:57)
[2024-09-06] MEDS: LIDOCAINE 1% PF INJ 5 ML VIAL INFILTRATE (08:57)
[2024-09-06 09:02] VITALS: BP 112/61; PULSE 74; RESP 17; O2SAT 97
[2024-09-06 09:20] VITALS: BP 108/65; PULSE 70; RESP 18; O2SAT 96
[2024-09-06 09:45] VITALS: BP 114/56; PULSE 74; RESP 18; O2SAT 97
--- NOTE | 2024-09-06 10:17 | SUR.PHASEII ---
0953; CALLED DR DELEON, NOTIFIED OF PT C/O TINGLING TO BILAT FEET. DR DELEON STATES PT MAY GO HOME.
== END 2024-09-06 10:05 | disposition home or self-care (01) ==
PROVIDERS: PCP Physician Assistant; Visit Provider Anesthesiology Pain Medicine
PROC: (CPT 64635; principal; 2024-09-06 08:15)
DX: M47.817 Spondylosis without myelopathy or radiculopathy, lumbosacral region (principal); G89.29 Other chronic pain
CPT/HCPCS: 64635; 64636 ×6; 99199

== ENCOUNTER 2024-10-11 12:16 | Outpatient (CLI) | payer MEDICARE, SELFPAY ==
--- NOTE | ~2024-10-11 | XR_ITS ---
EXAM/PROCEDURE: XR chest 2V - 10/11/2024 12:45 CDT HISTORY: 68 years old Female with Z01.818 - Encounter for other preprocedural examination TECHNIQUE: Two view(s) of the chest. COMPARISON: None available. FINDINGS: LUNGS/ PLEURA: No focal consolidation. No appreciable pneumothorax or large pleural effusion. HEART/ MEDIASTINUM: Heart appears normal in size. BONES: Degenerative changes. OTHER: Visualized upper abdomen is unremarkable. IMPRESSION: No acute process. Reviewed, dictated and finalized at location A. IMPRESSION: No acute process.
--- OUTSIDE RECORDS SUMMARY | 2024-10-11 12:03 | XMS_ITS | Clinical Summary ---
Author Organization [facility] Address [address] [place] [address] Care Team Providers Care Equipment Operator/Laborer Name Role Phone Shani See NP Primary Care Provider +1- [phone] Allergies No known active allergies Medications allopurinoL [...] 1 tablet (75 mcg total) by mouth corrections lieutenant before breakfast 3 Active lisinopriL (PRINIVIL,ZESTRI L) [...] (06/25/2022): Added automatically from request for surgery [id number] Surgical follow-up care 11/09/2012 Knee pain 10/08/2012 [...] on file Legal Sex Female 11:50 PM GAS CONTROLLER Gender Identity Not on file Sexual Orientation [...] (221 lb 9.6 oz) 025 10:37 AM GAS CONTROLLER Height 161.3 cm (5' 3.5) 04/26/2024 10 :37 AM GAS CONTROLLER Body Mass Index 38.64 04/26/2024 10:37 AM GAS CONTROLLER Plan of Treatment Health Maintenance Due Date [...] Ended) 2024 Medical Devices Implanted Type Area Mechanical Oxidizer Device Identifier Shelf Expiration Date Model / Serial / Lot Cortney [employer] Simplex P Full Dose Radiopaque Preblend Cement Bone Tobramycin 6197-9-010 - [id number] Implanted:Qty: 1 on 07/30/2022 by Shreyas Persaud MD at [facility] Right: Knee [employer] 10/21/2023 6197-9-010 / / [id number] [employer]hew[employer]Rich[employer] r[employer]o Legion 18mm Knee Short Cone Wedge Tibial Sterile [id number] - [id number] - [id number] Implanted:Qty: 1 on 07/30/2022 by Shreyas Persaud MD at [facility] [employer] Nephew/Richco/O rtho 05/23/2032 [id number] / [id number] / [employer]hew/Rich[employer]/O rtho Legion 10mm 220mm Pressfit Knee Straight Stem Femoral [id number] - [id number] - [id number] Implanted:Qty: 1 on 07/30/2022 by Shreyas Persaud MD at [facility] Right: Knee [employer]/Rich[employer]/O rtho 02/06/2025 [id number] / [id number] / [employer]hew/Rich[employer]/O rtho Legion Revision Knee Right 3 Baseplate Tibial [id number] - [id number] Implanted:Qty: 1 on 07/30/2022 by Shreyas Persaud MD at [facility] Right: Knee [employer]/Richco/O rtho 05/30/2032 [id number] / / [employer] Nexgen 15-30mm Knee 67mm Cone Large Step Augment Tibial [id number] - [id number] Implanted:Qty: 1 on 07/30/2022 by Shreyas Persaud MD at [facility] Right: Knee [employer] [id number] 03/22/2024 [id number] / / [id number] Screw On De Tibal Wedge Implanted:Qty: 1 on 07/30/2022 by Shreyas Persaud MD at [facility] Right: Knee [employer] 01/28/2025 / [id number] / [employer] Simplex P Full Dose Radiopaque Preblend Cement Bone Tobramycin 6197-9-010 - [id number] Implanted:Qty: 1 on 07/30/2022 by Shreyas Persaud MD at [facility] Right: Knee [employer] 12/21/2023 6197-9-010 / / [id number] [employer]hew/Richco/O rtho Ashleigh Ii 15mm Posterior Stabilized Constrained Knee 3-4 Insert [id number] - [id number] Implanted:Qty: 1 on 07/30/2022 by Shreyas Persaud MD at [facility] Right: Knee [employer]/Rich[employer]/O rtho [id number] 12/08/2030 [id number] / / [id number] [employer]/O rtho Ashleigh Ii 15mm Posterior Stabilized Constrained Knee 3-4 Insert [id number] - [id number] Implanted:Qty: 1 on 07/30/2022 by Shreyas Persaud MD at [facility] Right: Knee [employer] rtho [id number] 12/08/2030 [id number] / / [id number] Insurance MEDICARE ADVANTAGE MEDICARE ADVANTAGE Advance Directives For more information, please contact: [phone] * Full Code (Latest Code Status on File) Date Activated Date Inactivated Comments 07/30/2022 5:13 PM 08/01/2022 5:34 PM Care Teams Equipment Operator/Laborer Relationship Specialty Start Date End Date Shani See NP [address] [place] [address] PCP - General Supervisor Metal Hanging 04/22/22
--- OUTSIDE RECORDS SUMMARY | 2024-10-11 12:03 | XMS_ITS | Clinical Summary ---
Author Organization [facility] Address [facility] [place] [address] Care Team Providers Care Flight Readiness Technician Name Role Phone Sherrill Jovel MD Primary Care Provider [phone]- [phone] Allergies No known active allergies Medications allopurinol [...] on file Legal Sex Female 7:49 AM SCREW EYE ASSEMBLER Gender Identity Not on file Sexual Orientation Not on file Last Filed Vital Signs Vital Sign Reading Time Taken Comments Blood Pressure 131/49 02/17/2022 11:19 AM SCREW EYE ASSEMBLER Pulse 60 02/17/2022 11:19 AM SCREW EYE ASSEMBLER Temperature 36.2 C (97.2 F) 02/17/2022 9:25 AM SCREW EYE ASSEMBLER Respiratory Rate 18 02/17/2022 9:25 AM SCREW EYE ASSEMBLER Oxygen Saturation 96% 02/17/2022 11:19 AM SCREW EYE ASSEMBLER Inhaled Oxygen Concentration - - Weight 96.2 kg (212 lb) 02/03/2022 1:23 PM SCREW EYE ASSEMBLER Height 160 cm (5' 3) 02/03/2022 1:23 PM SCREW EYE ASSEMBLER Body Mass Index 37.55 02/03/2022 1:23 PM SCREW EYE ASSEMBLER Plan of Treatment Health Maintenance Due Date [...] this topic Medical Devices Implanted Type Area Theater Education Teacher Device Identifier Shelf Expiration Date Model / Serial / Lot Clareon Iol Aspheric Hydrophobic Acrylic Iol Implanted:Qty: 1 on 02/17/2022 by Bruce Coulter MD at [facility] Right: Eye [employer] 06/03/2024 [id number] / [id number] / Insurance MEDICARE [facility] INS[facility]ANCE Care Teams Flight Readiness Technician Relationship Specialty Start Date End Date Sherrill Jovel MD [address] [facility] [address] [place] [address] PCP - General FAMILY PRACTICE 02/17/22
--- OUTSIDE RECORDS SUMMARY | 2024-10-11 12:03 | XMS_ITS | Encounter Summary ---
Author Organization [facility] Address [address] [place] [address] Care Team Providers Care Manager Publishing Name Role Phone Sherrill Jovel MD Primary Care Provider +1- [phone] Encounter Details Date Type Department Care Team (Late st Contact Info) Description 02/17/2022 Prep for Procedure [facility] Day Services [address] [place], [place] [id number] Bruce Coulter MD [address] [facility] [place] [address] [place] [address] Social History Tobacco Use Types Packs/Day Years Used Date Smoking Tobacco: Never Smokeless Tobacco: Never Alcohol Use Standard Drinks/Week Comments Never 0 (1 standard drink = 0.6 oz pur e alcohol) Comments No Sex and Gender Information Value Date Recorded Sex Assigned at Not on file Legal Sex Female 7:49 AM TECHNICAL SALES REPRESENTATIVES Gender Identity Not on file Sexual Orientation Not on file COVID-19 Exposure Response Date Recorded In the last 10 days, have yo u been in contact with someone who was confirmed or suspected to have Coronavirus/COVID-19? No / Unsure 02/17/2022 8:52 AM TECHNICAL SALES REPRESENTATIVES documented as of this encounter Plan of Treatment Not on file documented as of this encounter Visit Diagnoses Not on filedocumented in this encounter Care Teams Manager Publishing Relationship Specialty Start Date End Date Sherrill Jovel MD [address] [facility] [address] [place] [address] PCP - General FAMILY PRACTICE 02/17/22 documented as of this encounter
--- OUTSIDE RECORDS SUMMARY | 2024-10-11 12:03 | XMS_ITS | Encounter Summary ---
Author Organization [facility] Address [facility] [place] [address] Care Team Providers Care Licensed Reactor Operator Name Role Phone Sherrill Jovel MD Primary Care Provider +1- [phone] Encounter Details Date Type Department Care Team (Late st Contact Info) Description 02/17/2022 Hospital Orders Only [facility] One Day Services [address] [place] [address] Bruce Coulter MD [address] [place] [address] [place] [address] Social History Tobacco Use Types Packs/Day Years Used Date Smoking Tobacco: Never Smokeless Tobacco: Never Alcohol Use Standard Drinks/Week Comments Never 0 (1 standard drink = 0.6 oz pur e alcohol) Comments No Sex and Gender Information Value Date Recorded Sex Assigned at Not on file Legal Sex Female 7:49 AM LINTING MACHINE OPERATOR Gender Identity Not on file Sexual Orientation Not on file COVID-19 Exposure Response Date Recorded In the last 10 days, have yo u been in contact with someone who was confirmed or suspected to have Coronavirus/COVID-19? No / Unsure 02/17/2022 8:52 AM LINTING MACHINE OPERATOR documented as of this encounter Plan of Treatment Not on file documented as of this encounter Visit Diagnoses Not on filedocumented in this encounter Care Teams Licensed Reactor Operator Relationship Specialty Start Date End Date Sherrill Jovel MD [address] [facility] [address] [place] [address] PCP - General FAMILY PRACTICE 02/17/22 documented as of this encounter
--- OUTSIDE RECORDS SUMMARY | 2024-10-11 12:03 | XMS_ITS | Referral Summary ---
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 Right: Knee [employer] 10/21/2023 6197-9-010 / / [id number] [employer] Legion 18mm Knee Short Cone Wedge Tibial Sterile [id number] - [id number] - [id number] Implanted:Qty: 1 on 07/30/2022 by Shreyas Persaud MD at [facility] [employer] rtho 05/23/2032 [id number] / [id number] / [employer] r[employer]o Legion 10mm 220mm Pressfit Knee Straight Stem Femoral [id number] - [id number] - [id number] Implanted:Qty: 1 on 07/30/2022 by Shreyas Persaud MD at [facility] Right: Knee [employer] r[employer]o 02/06/2025 [id number] / [id number] / [employer] r[employer]o Legion Revision Knee Right 3 Baseplate Tibial [id number] - [id number] Implanted:Qty: 1 on 07/30/2022 by Shreyas Persaud MD at [facility] Right: Knee [employer] rtho 05/30/2032 [id number] / / [employer] Nexgen 15-30mm Knee 67mm Cone Large Step Augment Tibial [id number] - [id number] Implanted:Qty: 1 on 07/30/2022 by Shreyas Persaud MD at [facility] Right: Knee [employer] [id number] 03/22/2024 [id number] / / [id number] Screw On De Tibal Wedge Implanted:Qty: 1 on 07/30/2022 by Shreyas Persaud MD at [facility] Right: Knee [employer]hew 01/28/2025 / [id number] / [employer] Simplex P Full Dose Radiopaque Preblend Cement Bone Tobramycin 6197-9-010 - [id number] Implanted:Qty: 1 on 07/30/2022 by Shreyas Persaud MD at [facility] Right: Knee [employer] 12/21/2023 6197-9-010 / / [id number] [employer] r[employer]o Ashleigh Ii 15mm Posterior Stabilized Constrained Knee 3-4 Insert [id number] - [id number] Implanted:Qty: 1 on 07/30/2022 by Shreyas Persaud MD at [facility] Right: Knee [employer] r[employer]o [id number] 12/08/2030 [id number] / / [id number] [employer] rtho Ashleigh Ii 15mm Posterior Stabilized Constrained Knee 3-4 Insert [id number] - [id number] Implanted:Qty: 1 on 07/30/2022 by Shreyas Persaud MD at [facility] Right: Knee [employer] r[employer]o [id number] 12/08/2030 [id number] / / [id number] Insurance [facility] MEDICARE ADVANTAGE [facility] MEDICARE ADVANTAGE Advance Directives For more information, please contact: [phone] * Full Code (Latest Code Status on File) Date Activated Date Inactivated Comments 07/30/2022 5:13 PM 08/01/2022 5:34 PM Care Teams Certified Ophthalmic Assistant Relationship Specialty Start Date End Date Shani See NP [address] [place] [address] PCP - General Claims Adjuster Supervisor 04/22/22
[2024-10-11 12:55] LABS: INR 1.1; Partial Thromboplastin Time 28.7 Seconds (22.3-36.8); Prothrombin Time 13.7 Seconds (11.1-14.7)
--- NOTE | 2024-10-11 13:00 | ECG_ITS ---
Test Date: 2024-10-11 13:09:22 Measurements Intervals Porter Rate: 67 P: 43 MI: 149 QRS: 1 QRSD: 86 T: 54 QT: 383 QTc: 405 Interpretive Statements SINUS RHYTHM MINIMAL VOLTAGE CRITERIA FOR LVH, CONSIDER NORMAL VARIANT [MEETS CRITERIA IN ONE OF: R(aVL), S(V1), R(V5), R(V5/V6)+S(V1)] NONSPECIFIC T-WAVE ABNORMALITY Compared to ECG 08/25/2024 13:57:32 NO SIGNIFICANT CHANGES Electronically Signed On 10-11-2024 17:05:52 CDT by Michelle Montejo M.D.
[2024-10-11 13:07] LABS: Alanine Aminotransferase 26 U/L (6-35); Albumin Level 4.3 g/dL (3.5-5.1); Alkaline Phosphatase 76 U/L (38-126); Anion Gap 9 mmol/L (4-12); Aspartate Amino Transferase 32 U/L (14-36); Bilirubin,Total 0.9 mg/dL (0.2-1.3); Blood Urea Nitrogen 17 mg/dL (7-17); Calcium 9.3 mg/dL (8.4-10.2); Carbon Dioxide 27 mmol/L (22-30); Chloride 100 mmol/L (98-107); Estimated Glomerular Filt Rate 52; Glucose 173 mg/dL (65-110); Potassium 4.5 mmol/L (3.4-5.0); Sodium 136 mmol/L (137-145); Total Protein 7.9 g/dL (6.3-8.2)
== END 2024-10-11 12:17 | disposition home or self-care (01) ==
PROVIDERS: PCP Physician Assistant; Referring Provider Nurse Practitioner Adult Health; Visit Provider Anesthesiology Pain Medicine
DX: Z01.818 Encounter for other preprocedural examination (principal); I10 Essential (primary) hypertension; D68.9 Coagulation defect, unspecified
CPT/HCPCS: 36415; 71046; 80053; 85610; 85730; 93005

== ENCOUNTER 2024-10-17 08:29 | Outpatient (CLI) | payer MEDICARE, SELFPAY ==
--- OUTSIDE RECORDS SUMMARY | 2024-10-17 08:32 | XMS_ITS | Clinical Summary ---
Author Organization [facility] Address [address] [place] [address] Care Team Providers Care Teleservices Representative Name Role Phone Shani See NP Primary Care Provider +1- [phone] Allergies No known active allergies Medications allopurinoL [...] 1 tablet (75 mcg total) by mouth link machine operator before breakfast 3 Active lisinopriL (PRINIVIL,ZESTRI L) [...] (06/25/2022): Added automatically from request for surgery [id number] Surgical follow-up care 11/09/2012 Knee pain 10/08/2012 [...] on file Legal Sex Female 11:50 PM SKIP LOCATOR Gender Identity Not on file Sexual Orientation [...] (221 lb 9.6 oz) 025 10:37 AM SKIP LOCATOR Height 161.3 cm (5' 3.5) 04/26/2024 10 :37 AM SKIP LOCATOR Body Mass Index 38.64 04/26/2024 10:37 AM SKIP LOCATOR Plan of Treatment Health Maintenance Due Date [...] ( season) 2023, 05/24/2020 Influenza Vaccine (#1) 2024 Medical Devices Implanted Type Area Rn Observation Device Identifier Shelf Expiration Date Model / Serial / Lot Ruffin [employer] Simplex P Full Dose Radiopaque Preblend Cement Bone Tobramycin 6197-9-010 - [id number] Implanted:Qty: 1 on 07/30/2022 by Shreyas Persaud MD at [facility] Right: Knee [employer] 10/21/2023 6197-9-010 / / [id number] [employer] Legion 18mm Knee Short Cone Wedge Tibial Sterile [id number] - [id number] - [id number] Implanted:Qty: 1 on 07/30/2022 by Shreyas Persaud MD at [facility] [employer]/Rich[employer]/O rtho 05/23/2032 [id number] / [id number] / [employer]O rtho Legion 10mm 220mm Pressfit Knee Straight Stem Femoral [id number] - [id number] - [id number] Implanted:Qty: 1 on 07/30/2022 by Shreyas Persaud MD at [facility] Right: Knee [employer] rtho 02/06/2025 [id number] / [id number] / [employer]O rtho Legion Revision Knee Right 3 Baseplate Tibial [id number] - [id number] Implanted:Qty: 1 on 07/30/2022 by Shreyas Persaud MD at [facility] Right: Knee [employer]/Rich[employer]/O rtho 05/30/2032 [id number] / / [employer] Nexgen 15-30mm Knee 67mm Cone Large Step Augment Tibial [id number] - [id number] Implanted:Qty: 1 on 07/30/2022 by Shreyas Persaud MD at [facility] Right: Knee [employer] [id number] 03/22/2024 [id number] / / [id number] Screw On De Tibal Wedge Implanted:Qty: 1 on 07/30/2022 by Shreyas Persaud MD at [facility] Right: Knee [employer] 01/28/2025 / [id number] / [employer] Simplex P Full Dose Radiopaque Preblend Cement Bone Tobramycin 6197-9-010 - [id number] Implanted:Qty: 1 on 07/30/2022 by Shreyas Persaud MD at [facility] Right: Knee [employer] 12/21/2023 6197-9-010 / / [id number] [employer] r[employer]o Ashleigh Ii 15mm Posterior Stabilized Constrained Knee 3-4 Insert [id number] - [id number] Implanted:Qty: 1 on 07/30/2022 by Shreyas Persaud MD at [facility] Right: Knee [employer]/O rtho [id number] 12/08/2030 [id number] / / [id number] [employer]hew/[employer] rtho Ashleigh Ii 15mm Posterior Stabilized Constrained Knee 3-4 Insert [id number] - [id number] Implanted:Qty: 1 on 07/30/2022 by Shreyas Persaud MD at [facility] Right: Knee [employer] r[employer]o [id number] 12/08/2030 [id number] / / [id number] Insurance MEDICARE ADVANTAGE MEDICARE ADVANTAGE Advance Directives For more information, please contact: [phone] * Full Code (Latest Code Status on File) Date Activated Date Inactivated Comments 07/30/2022 5:13 PM 08/01/2022 5:34 PM Care Teams Teleservices Representative Relationship Specialty Start Date End Date Shani See NP [address] [place] [address] PCP - General Automatic Riveting Machine Operator 04/22/22
--- OUTSIDE RECORDS SUMMARY | 2024-10-17 08:32 | XMS_ITS | Encounter Summary ---
Author Organization [facility] Address [address] [place] [address] Care Team Providers Care Biomed Tech Name Role Phone Sherrill Jovel MD Primary Care Provider +1- [phone] Encounter Details Date Type Department Care Team (Late st Contact Info) Description 02/17/[address] [facility] One Day Services [address] [place], [place] [id number] Bruce Coulter MD [address] [facility] [place] [address] [place] [address] Social History Tobacco Use Types Packs/Day Years Used Date Smoking Tobacco: Never Smokeless Tobacco: Never Alcohol Use Standard Drinks/Week Comments Never 0 (1 standard drink = 0.6 oz pur e alcohol) Comments No Sex and Gender Information Value Date Recorded Sex Assigned at Not on file Legal Sex Female 7:49 AM OPENER TENDER Gender Identity Not on file Sexual Orientation Not on file COVID-19 Exposure Response Date Recorded In the last 10 days, have yo u been in contact with someone who was confirmed or suspected to have Coronavirus/COVID-19? No / Unsure 02/17/2022 8:52 AM OPENER TENDER documented as of this encounter Plan of Treatment Not on file documented as of this encounter Visit Diagnoses Not on filedocumented in this encounter Care Teams Biomed Tech Relationship Specialty Start Date End Date Sherrill Jovel MD [address] [facility] [address] [place] [address] PCP - General FAMILY PRACTICE 02/17/22 documented as of this encounter
--- OUTSIDE RECORDS SUMMARY | 2024-10-17 08:32 | XMS_ITS | Clinical Summary ---
Author Organization [facility] Address [facility] [place] [address] Care Team Providers Care Intelligence Director Name Role Phone Sherrill Jovel MD Primary Care Provider [phone] Allergies No known active allergies Medications allopurinol [...] on file Legal Sex Female 7:49 AM PLAY BACK OPERATOR Gender Identity Not on file Sexual Orientation Not on file Last Filed Vital Signs Vital Sign Reading Time Taken Comments Blood Pressure 131/49 02/17/2022 11:19 AM PLAY BACK OPERATOR Pulse 60 02/17/2022 11:19 AM PLAY BACK OPERATOR Temperature 36.2 C (97.2 F) 02/17/2022 9:25 AM PLAY BACK OPERATOR Respiratory Rate 18 02/17/2022 9:25 AM PLAY BACK OPERATOR Oxygen Saturation 96% 02/17/2022 11:19 AM PLAY BACK OPERATOR Inhaled Oxygen Concentration - - Weight 96.2 kg (212 lb) 02/03/2022 1:23 PM PLAY BACK OPERATOR Height 160 cm (5' 3) 02/03/2022 1:23 PM PLAY BACK OPERATOR Body Mass Index 37.55 02/03/2022 1:23 PM PLAY BACK OPERATOR Plan of Treatment Health Maintenance Due Date [...] this topic Medical Devices Implanted Type Area Cylinder Block Hole Reliner Device Identifier Shelf Expiration Date Model / Serial / Lot Clareon Iol Aspheric Hydrophobic Acrylic Iol Implanted:Qty: 1 on 02/17/2022 by Bruce Coulter MD at [facility] Right: Eye [employer] 06/03/2024 [id number] / [id number] / Insurance MEDICARE [facility] [employer] Care Teams Intelligence Director Relationship Specialty Start Date End Date Sherrill Jovel MD [address] [facility] [address] [place] [address] PCP - General FAMILY PRACTICE 02/17/22
--- OUTSIDE RECORDS SUMMARY | 2024-10-17 08:32 | XMS_ITS | Encounter Summary ---
Author Organization [facility] Address [facility] [place] [address] Care Team Providers Care Sole Conforming Machine Operator Name Role Phone Sherrill Jovel MD Primary Care Provider [phone] Encounter Details Date Type Department Care Team (Late st Contact Info) Description 02/17/2022 Hospital Orders Only [facility] [address] [place] [address] Bruce Coulter MD [address] [facility] [facility] [address] [place] [address] Social History Tobacco Use Types Packs/Day Years Used Date Smoking Tobacco: Never Smokeless Tobacco: Never Alcohol Use Standard Drinks/Week Comments Never 0 (1 standard drink = 0.6 oz pur e alcohol) Comments No Sex and Gender Information Value Date Recorded Sex Assigned at Not on file Legal Sex Female 7:49 AM GEOLOGY TEACHER Gender Identity Not on file Sexual Orientation Not on file COVID-19 Exposure Response Date Recorded In the last 10 days, have yo u been in contact with someone who was confirmed or suspected to have Coronavirus/COVID-19? No / Unsure 02/17/2022 8:52 AM GEOLOGY TEACHER documented as of this encounter Plan of Treatment Not on file documented as of this encounter Visit Diagnoses Not on filedocumented in this encounter Care Teams Sole Conforming Machine Operator Relationship Specialty Start Date End Date Sherrlil Jovel MD [address] [facility] [address] [place] [address] PCP - General FAMILY PRACTICE 02/17/22 documented as of this encounter
--- OUTSIDE RECORDS SUMMARY | 2024-10-17 08:32 | XMS_ITS | Referral Summary ---
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 Right: Knee [employer] 10/21/2023 6197-9-010 / / [id number] [employer] Legion 18mm Knee Short Cone Wedge Tibial Sterile [id number] - [id number] - [id number] Implanted:Qty: 1 on 07/30/2022 by Shreyas Persaud MD at [facility] [employer] 05/23/2032 [id number] / [id number] / [employer] Legion 10mm 220mm Pressfit Knee Straight Stem Femoral [id number] - [id number] - [id number] Implanted:Qty: 1 on 07/30/2022 by Shreyas Persaud MD at [facility] Right: Knee [employer] 02/06/2025 [id number] / [id number] / [employer] Legion Revision Knee Right 3 Baseplate Tibial [id number] - [id number] Implanted:Qty: 1 on 07/30/2022 by Shreyas Persaud MD at [facility] Right: Knee [employer] 05/30/2032 [id number] / / [employer] Nexgen 15-30mm Knee 67mm Cone Large Step Augment Tibial [id number] - [id number] Implanted:Qty: 1 on 07/30/2022 by Shreyas Persaud MD at [facility] Right: Knee [employer] [id number] 03/22/2024 [id number] / / [id number] Screw On De Tibal Wedge Implanted:Qty: 1 on 07/30/2022 by Shreyas Persaud MD at [facility] Right: Knee [employer] 01/28/2025 / [id number] / [employer] Simplex P Full Dose Radiopaque Preblend Cement Bone Tobramycin 6197-9-010 - [id number] Implanted:Qty: 1 on 07/30/2022 by Shreyas Persaud MD at [facility] Right: Knee [employer] 12/21/2023 6197-9-010 / / [id number] [employer] Ashleigh Ii 15mm Posterior Stabilized Constrained Knee 3-4 Insert [id number] - [id number] Implanted:Qty: 1 on 07/30/2022 by Shreyas Persaud MD at [facility] Right: Knee [employer] [id number] 12/08/2030 [id number] / / [id number] [employer] Ashleigh Ii 15mm Posterior Stabilized Constrained Knee 3-4 Insert [id number] - [id number] Implanted:Qty: 1 on 07/30/2022 by Shreyas Persaud MD at [facility] Right: Knee [employer] [id number] 12/08/2030 [id number] / / [id number] Insurance [facility] MEDICARE ADVANTAGE [facility] MEDICARE ADVANTAGE Advance Directives For more information, please contact: [phone] * Full Code (Latest Code Status on File) Date Activated Date Inactivated Comments 07/30/2022 5:13 PM 08/01/2022 5:34 PM Care Teams Marine Diesel Technician Relationship Specialty Start Date End Date Shani See NP [address] [place] [address] PCP - General Tappet Adjuster 04/22/22
[2024-10-17 09:27] LABS: Hemoglobin A1C 7.4 % (<5.7)
[2024-10-17 09:33] LABS: Cholesterol 184 mg/dL (0-200); HDL Direct 51 mg/dL; Triglycerides 149 mg/dL (<150); Uric Acid 4.4 mg/dL (2.5-7.5)
[2024-10-17 09:45] LABS: Free T4 Free Thyroxine 1.77 ng/dL (0.78-2.19)
[2024-10-17 10:09] LABS: Thyroid Stimulating Hormone 1.080 uIU/mL (0.465-4.680)
[2024-10-17 10:10] LABS: MALB Creatinine Ratio 6.2 mg/g (0-30)
== END 2024-10-17 08:30 | disposition home or self-care (01) ==
PROVIDERS: PCP Physician Assistant; Visit Provider Student in an Organized Health Care Education/Training Program
DX: E07.9 Disorder of thyroid, unspecified (principal); I10 Essential (primary) hypertension; E78.5 Hyperlipidemia, unspecified; E11.9 Type 2 diabetes mellitus without complications; E03.9 Hypothyroidism, unspecified; M10.9 Gout, unspecified
CPT/HCPCS: 36415; 80061; 82043; 83036; 84439; 84443; 84550

== ENCOUNTER 2024-11-01 02:18 | Day surgery (SDC) | payer MEDICARE, SELFPAY ==
--- NOTE | 2024-10-24 13:15 | PC.NURSE ---
Report to the Outpatient Waiting Room, entrance under the green pavilion located off [facility], at time __6:30 AM on date __11/01/24 . Planned Procedure Time: __8:30 AM .? Time changes happen often and if your time is changed the preop area will call you the afternoon before. - You and your visitor will be asked to self-screen and do not enter if you have any COVID symptoms. Please call surgeon if you need to reschedule. - A mask is optional within the hospital at this time. NOTHING TO EAT OR DRINK AFTER MIDNIGHT PER DR DELEON Take only the following medications with a SIP of water on the morning of surgery: __,LEVOTHYROXINE.PROPRANOLOL DO NOT STOP ANY OF YOUR OTHER PRESCRIPTION MEDICATIONS PRIOR TO SURGERY EXCEPT THE FOLLOWING Hold all vitamins and supplements for 3 days per anesthesiologist. Medications to discontinue per physician CELECOXIB HOLD 7 DAYS PRE OP_PER PCP ROBBIE PENALOZA Date to take last dose____10/24/24 Please no make-up, nail honduran, hairspray, perfume, deodorant, or body powder the day of surgery.? No jewelry (including any body piercings) or valuables the day of surgery, leave them at home.? Please take a shower or bath the night before, AND the morning of, surgery with an antibacterial soap.? Wear comfortable, loose fitting clothing.? Children are encouraged to wear pajamas. - Jewelry must be removed prior to entering the operating room.? Rings and piercings that are not removed may be cut off. - The hospital will not accept responsibility for valuables.? - Please leave all valuables, including medications, at home the day of surgery. If you are going home after surgery, a licensed tour bus driver must drive you home.? - NO public transportation without another adult if you receive anesthesia. - We recommend that an adult stay with you for 24 hours following discharge. - We also recommend that you do not drive, make important decision, drink alcoholic beverages, or take any drugs that were not prescribed by your health care provider for at least 24 hours after your discharge time. Follow any additional instructions given to you from your surgeon. Telephone instructions given to __PATIENT and asked if any additional questions and then verbalized understanding. Patient advised to call surgeon office or pre surgery nurse liaison [phone] if any additional questions.
[2024-10-24 13:31] VITALS: BMI 35.4
[2024-11-01] VITALS (8 sets, daily range): BP systolic 140–181; BP diastolic 60–84; PULSE 78–90; RESP 15–20; TEMP 36.1–36.4; O2SAT 95–100
--- NOTE | ~2024-11-01 | XR_ITS ---
INTRAOPERATIVE FLUOROSCOPY: CLINICAL HISTORY: 68 years old Female; INTRACEPT L4-L5, L5-S1 PROCEDURE COMMENTS: Limited intraoperative fluoroscopy of the lumbar spine was performed. CUMULATIVE DOSE: 255 mGy FLUOROSCOPY TIME: 5 minutes and 16 seconds FINDINGS/IMPRESSION: Please refer to operative note for further details. Reviewed, dictated and finalized at location A.
--- OUTSIDE RECORDS SUMMARY | 2024-11-01 02:20 | XMS_ITS | Clinical Summary ---
Author Organization 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 Gender Identity Not on file Sexual Orientation [...] (221 lb 9.6 oz) 025 10:37 AM WHITEWATER RAFTING GUIDE Height 161.3 cm (5' 3.5) 04/26/2024 10 :37 AM WHITEWATER RAFTING GUIDE Body Mass Index 38.64 04/26/2024 10:37 AM WHITEWATER RAFTING GUIDE Plan of Treatment Health Maintenance Due Date [...] (#1) 2024 Medical Devices Implanted Type Area Composing Machine Operator/Tender Device Identifier Shelf Expiration Date Model / Serial / Lot [employer] Simplex P Full Dose Radiopaque Preblend Cement Bone Tobramycin 6197-9-010 - [id number] Implanted:Qty: 1 on 07/30/2022 by Shreyas Persaud MD at [facility] Right: Knee [employer] 10/21/2023 6197-9-010 / / [id number] [employer] Legion 18mm Knee Short Cone Wedge Tibial Sterile [id number] - [id number] - [id number] Implanted:Qty: 1 on 07/30/2022 by Shreyas Persaud MD at [facility] [employer] 05/23/2032 [id number] / [id number] / [employer] Legion 10mm 220mm Pressfit Knee Straight Stem Femoral [id number] - [id number] - [id number] Implanted:Qty: 1 on 07/30/2022 by Shreyas Persaud MD at [facility] Right: Knee [employer] 02/06/2025 [id number] / [id number] / [employer] Legion Revision Knee Right 3 Baseplate Tibial [id number] - [id number] Implanted:Qty: 1 on 07/30/2022 by Shreyas Persaud MD at [facility] Right: Knee [employer] 05/30/2032 [id number] / / [employer] Nexgen 15-30mm Knee 67mm Cone Large Step Augment Tibial [id number] - [id number] Implanted:Qty: 1 on 07/30/2022 by Shreyas Persaud MD at [facility] Right: Knee [employer] [id number] 03/22/2024 [id number] / / [id number] Screw On Ed Tibal Wedge Implanted:Qty: 1 on 07/30/2022 by Shreyas Persaud MD at [facility] Right: Knee [employer] 01/28/2025 / [id number] / [employer] Simplex P Full Dose Radiopaque Preblend Cement Bone Tobramycin 6197-9-010 - [id number] Implanted:Qty: 1 on 07/30/2022 by Shreyas Persaud MD at [facility] Right: Knee [employer] 12/21/2023 6197-9-010 / / [id number] [employer] Ashleigh Ii 15mm Posterior Stabilized Constrained Knee 3-4 Insert [id number] - [id number] Implanted:Qty: 1 on 07/30/2022 by Shreyas Persaud MD at [facility] Right: Knee [employer] [id number] 12/08/2030 [id number] / / [id number] [employer] Ashleigh Ii 15mm Posterior Stabilized Constrained Knee 3-4 Insert [id number] - [id number] Implanted:Qty: 1 on 07/30/2022 by Shreyas Persaud MD at [facility] Right: Knee [employer] [id number] 12/08/2030 [id number] / / [id number] Insurance MEDICARE ADVANTAGE [facility] Address: [address] [address] [place] [address] MEDICARE ADVANTAGE [facility] Address: [address] [address] [place] [address] Advance Directives For more information, please contact: [phone] * Full Code (Latest Code Status on File) Date Activated Date Inactivated Comments 07/30/2022 5:13 PM 08/01/2022 5:34 PM Care Teams Roof Fitter Relationship Specialty Start Date End Date Shani See NP [address] [place] [address] PCP - General Plastics Repairer 04/22/22
[2024-11-01] MEDS: LACTATED RINGERS 1,000 ML 30 ML IV CONT ×2 (06:40→13:51)
[2024-11-01 06:55] LABS: Hematocrit 37.9 % (37.0-47.0); Hemoglobin 12.4 g/dL (12.0-15.0); Mean Corpuscular HGB Conc 32.7 g/dl (32-36); Mean Corpuscular Hemoglobin 29.0 pg (26-34); Mean Corpuscular Volume 88.8 fl (80-100); Platelet Count Result 330 k/mm3 (150-375); Red Blood Count 4.27 M/mm3 (4.2-5.4); White Blood Count 9.5 K/mm3 (4.5-10.0)
--- NOTE | 2024-11-01 07:21 | WPDHPUPDATE1 ---
History and Physical Update Update Date/Time: 11/01/24 07:21 History and Physical has been reviewed, including an updated exam of the patient. There are NO changes in the patient's condition. Risks, benefits, and alternatives have been discussed and questions answered. Patient agrees to proceed with procedure.
--- NOTE | 2024-11-01 07:22 | W.PM.PROC2 ---
Procedure Note - Detailed Date of Procedure 11/01/24 Pre-op Diagnosis Vertebrogenic low back pain, chronic pain Post-op Diagnosis Same Procedure Performed Percutaneous transpedicular intraosseous basivertebral nerve thermal radiofrequency ablation (Intracept procedure) at L4, L5, S1 under fluoroscopic guidance. Surgeon Ruben Forde MD Crusher And Binder Operator None. Anesthesia General (GETA] in the [prone] position with infiltration of local anesthetic. 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 They are significantly limited in their daily and/or work-related activities as a result, including sitting, standing, lifting/carrying and sleeping, with failure to respond to and/or tolerate extensive efforts at more conservative management (i.e. oral and topical analgesics including NSAIDs, acetaminophen and opioids, Physical Therapy and modalities, time/rest, interventional procedures/corticosteroid injections) for greater than 6 months prior to today's procedure establishing medical necessity for this well-studied and FDA-approved pain-relieving procedure. INFORMED CONSENT: Procedure was discussed in detail with the patient at a previous visit and at the time of surgery. During this discussion, the risks, benefits, and alternatives to the procedure, including doing nothing, were thoroughly described to the patient, who expressed explicit understanding and consent to proceed. Specific risks discussed with the patient included, but were not limited to the risk of serious local or systemic infection, skin burn/scarring, major or minor bleeding/bruising, allergic reaction to medications or materials, inadvertent lung or other organ injury, new or worsening spinal fracture, inadvertent thermal or mechanical nerve or spinal cord injury resulting in increased pain, weakness, numbness or loss of bowel or bladder control, the need for repeat or additional surgery, inadvertent dural puncture resulting in acute or chronic CSF leak and post-dural puncture headache, failure to treat pain, and risks associated with general anesthesia in the prone position including eye, dental, joint, nerve, spine or soft tissue injury/pain related to positioning, heart attack, respiratory failure, aspiration, pneumonia, DVT/PE or thrombosis, hemorrhagic or ischemic stroke, hypoxia, hypo- or hypertension, seizure, coma and . Patient understands these risks and agrees that the opportunity for benefit outweighs the potential risk of harm. Procedure specific informed consent form was read, reviewed, signed by the patient and surgeon and witnessed in the pre-operative area. All pertinent questions were asked and answered to the patient's satisfaction. Surgical site was pre-treated with chlorhexidine wipes. All materials required for the procedure were available and site and side of procedure was marked prior to procedure start. Appropriate timeout was conducted by all participants in the OR (patient's ID, procedure to be performed, procedure site and side, allergies and appropriate medications including pre-operative antibiotics were verified) prior to incision. PROCEDURE IN DETAIL: After full informed consent and adequate IV access was obtained without difficulty; the patient was escorted to the procedural suite. ASA standard monitors were applied and utilized throughout the case. Prophylactic antibiotics were administered prior to procedure start. GETA was initiated without difficulty or event. Eyes were protected. Patient was converted to the prone position in optimal flexion using pillows under the abdomen, hips and ankles. Pressure points were padded, cervical spine and joints were placed in neutral position. Eyes, breasts and genitals were evaluated and protected as appropriate. The thoracolumbar spine to the sacrum was prepared in the usual manner using alcohol scrub followed by broad application of ChloraPrep, and allowed to dry completely for over 3 minutes. Surgical site and C-arm was sterilely draped in the typical fashion. Aseptic technique and strict fluoroscopic guidance was utilized throughout. Fluoroscope was moved into position to visualize the vertebral bodies of interest in the AP and lateral plane, obtaining true linear projections of the endplates at each level, and was rotated in the ipsilateral oblique view approximately 35 degrees from true AP to visualize the vertebrae with respective ipsilateral facet joints visualized bisecting the superior disk space at the midpoint of the vertebral body. The superolateral border of the pedicle of each level treated was identified. After adequate general anesthesia was confirmed, the skin entry point was located and infiltrated with an adequate amount of a 1:1 admixture of 0.5% preservative free bupivacaine and 2.0% preservative-free lidocaine using a 27 gauge 1.5-inch hypodermic needle after negative aspiration for blood or bodily fluid. Appropriate introducer cannula trajectory was identified in the AP, oblique and lateral views, and local anesthesia was extended to periosteum in a similar fashion at each level treated using a 3.5 inch, 22-gauge Quincke spinal needle. A stab skin decision was made with a #11 scalpel blade and an 8-gauge introducer cannula with beveled tip was then introduced through the skin, subcutaneous tissue and paraspinal muscle until contact was made with the bony surface of the pedicle at the target level. Appropriate position was confirmed in both the AP and lateral views. Using a 24-ounce surgical mallet, the trocar was advanced through the right pedicle to the posterior aspect of the vertebral body using a combination of AP and lateral views to ensure appropriate travel through the pedicle without breach of its medial wall or entry into the epidural/neuroforaminal space. Once the trocar had entered the posterior aspect of the S1 vertebral body, the trocar was removed from the cannula and the curved cannula assembly was inserted followed by replacement of the original straight stylette with the Nitinol J ? stylette without difficulty. The wingnut on the device was rotated counterclockwise to its endpoint permitting excursion of the J ? stylette. The curved cannula assembly was then advanced under intermittent fluoroscopic guidance, using the surgical mallet, in 1 to 2 mm increments with observed travel anteriorly and medially through the vertebral body in both the AP and lateral views. When necessary, the J-stylette was intermittently removed and replaced with the straight stylette during advancement to reach the basivertebral nerve target near the center point of the vertebral body. Target was reached when the tip of the stylette was noted to be a minimum of 1 cm anterior to the posterior wall and approximately 30 to 50% of the posterior to anterior diameter of the targeted vertebral body and at the midpoint of the distance between the superior and inferior endplates, with tip of the stylette crossing midline as represented by the spinous process in the carefully aligned AP projection. J-stylette was then removed and the bipolar radiofrequency probe was connected to the generator and inserted into the introducer cannula until the proximal and distal electrodes straddled the midpoint of the vertebral body. The wingnut was then rotated clockwise to retract the PEEK sleeve and expose the proximal electrode on the radiofrequency probe. The basivertebral nerve was then ablated through activation of the probe and generator. At each level treated, ablation was performed at 85 degrees centigrade for 15 minutes using [facility]'s RFG standard intraosseous ablation algorithm while simultaneously monitoring for any sign of motor or sensory nerve stimulation. While ablative lesioning was progressing to completion at the initial level, the fluoroscope was adjusted to successively visualize the target of entry at the superolateral aspect of the pedicle at each additional level treated, (L4, L5), with each vertebral body subsequently and sequentially accessed and target nerve ablated in a similar manner modified only to accommodate for specific level, location and anatomical variation, alternating the site and side of entry to facilitate cannula placement. This was achieved in all cases without difficulty. Location of each entry point, final cannula and probe position was documented by fluoroscopy in the AP and lateral views with respective images recorded in the patient's chart. In all cases, once intraosseous access was obtained, needle tip remained intraosseous without violation of the pedicular wall, vertebral wall, neuroforamen and/or spinal canal. Once all ablations were complete, instruments were removed from the vertebral bodies without difficulty under direct visualization and fluoroscopic guidance. Pressure was held at each entry site until hemostasis was confirmed. Skin was cleaned with alcohol -soaked gauze and dried with a sterile towel. Surgical wounds were then closed with mastisol and Steri-Strips placed in a crisscrossing fashion and covered with a sterile Telfa and Tegaderm dressing. The patient was returned to the supine position and anesthesia was reversed without difficulty or event. The patient tolerated the procedure well with no evidence of complication. Patient was transported to the recovery room where they were monitored for an appropriate period of time prior to discharge. During this time, the patient demonstrated no evidence of new neurologic symptom or injury, uncontrolled pain, postsurgical or post anesthetic complication. The patient was eventually discharged with both written and verbal instructions for appropriate wound care and activity restriction and with instructions to contact the office or report directly to the emergency department if no immediate response or if after hours with any signs of urgent or emergent complication including but not limited to excessive discharge or bleeding, new focal or diffuse neurologic weakness, numbness or other sensory change in the upper or lower extremities, severe headaches, intractable nausea/vomiting, fevers, chills, night sweats, increasing pain or loss of bowel or bladder control. Patient will otherwise follow-up in person at the clinic in 7 to 10 days for wound check and reevaluation. COMPLICATIONS: None. COMMENTS: None. IV FLUIDS: On Chart. EBL: 10 ml. DRAINS: None. PACKING: None. SPECIMEN: None. Pathology None sent Complications No immediate complications Condition Stable Disposition PACU [facility] Billing Surgery - Charge Forward: Surgery Billing
--- NOTE | 2024-11-01 09:16 | SUR.PREOP ---
0830 DR DELEON IN TO SEE PT, INFORMED PT OF SURGERY TIME DELAY.
--- NOTE | 2024-11-01 09:17 | SUR.PREOP ---
[id number] PT DENIES NEEDS AT THIS TIME
--- NOTE | 2024-11-01 11:35 | P.PNAN_ITS ---
Anes - Initial Pre Proc Eval Procedure: Operation Date: 11/01/24 08:30 Proposed Procedures p Intracept Procedure at L4-L5, L5- S1 Under Fluoroscopic Guidance - Ruben Forde MD Date/Time: 11/01/24 11:35 Surgeon: Ruben Forde MD Pre Op Diagnosis: lumbar stenosis Patient Data Age: 68 Gender: F Height: 1.6 m Weight: 98.8 kg Last Vital Signs Temp 96.9 F L 11/01/24 06:40 Pulse 78 11/01/24 06:40 Resp 18 11/01/24 06:40 BP 141/70 H 11/01/24 06:40 Pulse Ox 96 11/01/24 06:40 O2 Del Method Room Air 11/01/24 06:40 Allergies Allergy/AdvReac Type Severity Reaction Status Date / Time No Known Allergies Allergy Verified 11/01/24 06:52 Home Medications ?Medication ?Instructions ?Recorded ?Confirmed ?Type cetirizine 10 mg tablet (Zyrtec) 10 mg PO DAILY 09/02/23 11/01/24 History lisinopril 10 mg tablet 10 mg PO DAILY #90 tabs 01/01/24 11/01/24 Rx alprazolam 0.5 mg tablet 0.5 mg PO DAILY anxiety #2 tabs 06/20/24 10/24/24 Rx omeprazole 40 mg capsule,delayed 40 mg PO DAILY #90 caps 06/29/24 11/01/24 Rx release propranolol 40 mg tablet 40 mg PO BID #180 tabs 06/29/24 11/01/24 Rx levothyroxine 75 mcg tablet 75 mcg PO DAILY #90 tabs 09/30/24 11/01/24 Rx metformin 500 mg tablet 500 mg PO BIDWMEAL #180 tabs 09/30/24 11/01/24 Rx allopurinol 300 mg tablet See Rx Instructions .Route 10/05/24 11/01/24 Rx .COMPLEX #100 tabs triamterene 37.5 1 tablet PO QAM #90 tabs 10/12/24 11/01/24 Rx mg-hydrochlorothiazide 25 mg tablet celecoxib 200 mg capsule 200 mg PO BID Pain 10/24/24 11/01/24 History duloxetine 30 mg capsule,delayed 30 mg PO QPM 10/24/24 11/01/24 History release Laboratory Tests 11/01/24 11/01/24 06:36 06:43 WBC 9.5 K/mm3 (4.5-10.0) RBC 4.27 M/mm3 (4.2-5.4) Hgb 12.4 g/dL (12.0-15.0) Hct 37.9 % (37.0-47.0) MCV 88.8 fl (80-100) MCH 29.0 pg (26-34) MCHC 32.7 g/dl (32-36) RDW 13.8 % (11.5-14.5) Plt Count 330 k/mm3 (150-375) MPV 9.6 fl (7.4-10.4) POC Capillary Glucose 179 H mg/dl (65-105) Patient hx anesthesia problems: none Family hx anesthesia problems: none Results Review: All pre-operative results and documents have been reviewed as part of the pre- operative evaluation. [facility] Past Medical History Medical History Diabetes type 2, controlled Chronic cough Cough HLD (hyperlipidemia) Hypothyroidism associated with surgical procedure Benign essential HTN Migraines Gout Chronic pain Arthritis BP (high blood pressure) Surgical History Surgical History History of arthroscopic knee surgery right knee 2008 H/O thyroidectomy History of total knee arthroplasty right knee x3 2007, 2011, 2013 left knee 2008 Family History Family History Sibling Cerebrovascular accident, Onset Age: 53 Mother Family history of diabetes mellitus in mother, Onset Age: 79 Social History Social History Social History: Smoking status: Never smoker Second hand tobacco smoke exposure: No Alcohol intake: unknown Substance use: never Substance use type: does not use Lack of Transportation: No Lack of Food: Never True Current Housing: I Have Housing Concerned About Future Housing: No Difficulty Paying Gas/Electric Bills: No Difficulty Paying for Meds: No Currently Unemployed: YES Education: Decline to Answer Difficulty w/ Childcare or Family Care: No Living arrangements: with family Occupation/Education: retired Gender identity (if verbalized by the patient): Female Sexual Orientation (if Verbalized by the Patient): Straight or Heterosexual Spiritual care concerns: No Anes - Eval Final PreProcedure Day of Procedure 11/01/24 11:35 Patient weight: obese Lungs: normal air movement Airway: Mallampati scale class II and special considerations (Upper and lower partials. ) Neurological: alert and oriented Last oral intake: >/= 8 hours ASA classification: III Emergent: no Anesthetic plan: proceed Anesthesia type and monitoring: general ETT and standard monitoring Results Review: All pre-operative results and documents have been reviewed as part of the pre- operative evaluation. HTN, DM fsbs 179, hypothyroidism, BMI 38. EKG reviewed. Informed Consent: The patient's anesthetic plan and its attendant risks and benefits were discussed with the patient/family/POA. Questions were solicited and answers provided to the satisfaction of the patient/family/POA.
[2024-11-01] MEDS: ceFAZolin 2 GM in SODIUM CHLORIDE 0.9% IV 50 ML 100 ML IVPB (12:21)
[2024-11-01] MEDS: LIDOCAINE 1% LOCAL INJ 20 ML VIAL 10 ML INFILTRATE (12:21)
[2024-11-01] MEDS: BUPIVACAINE/EPINEPHRINE 0.5% 30 ML VIAL 10 ML INFILTRATE (12:21)
== END 2024-11-01 15:23 | disposition home or self-care (01) ==
PROVIDERS: PCP Physician Assistant; Visit Provider Anesthesiology Pain Medicine
PROC: (CPT 64628; principal; 2024-11-01 08:30)
DX: M47.817 Spondylosis without myelopathy or radiculopathy, lumbosacral region (principal); M48.062 Spinal stenosis, lumbar region with neurogenic claudication; M47.812 Spondylosis without myelopathy or radiculopathy, cervical region; G89.29 Other chronic pain; E78.5 Hyperlipidemia, unspecified; E03.9 Hypothyroidism, unspecified; I10 Essential (primary) hypertension; E11.9 Type 2 diabetes mellitus without complications; F41.9 Anxiety disorder, unspecified; R05.3 Chronic cough; M19.90 Unspecified osteoarthritis, unspecified site; E66.9 Obesity, unspecified; Z68.38 Body mass index [BMI] 38.0-38.9, adult; Z79.1 Long term (current) use of non-steroidal anti-inflammatories (NSAID); Z79.84 Long term (current) use of oral hypoglycemic drugs; Z98.890 Other specified postprocedural states
CPT/HCPCS: 64628; 64629; 36415; 82948; 85027; 99199; J0690; J0330; J1100; J2003; J2405; J2704; J7120

== ENCOUNTER 2024-11-29 08:18 | Day surgery (SDC) | payer MEDICARE, SELFPAY ==
[2024-11-18 14:40] VITALS: BMI 38.2
--- NOTE | ~2024-11-29 | XR_ITS ---
EXAMINATION: XR fluoroscopy no charge DATE: 11/29/2024 11:54 INDICATION: Bilateral minimally invasive L3-L4 lumbar decompression TECHNIQUE: 175 fluoroscopic images of the lumbar spine were obtained during procedure performed by Dr. Forde. Radiologist was not present for the imaging or procedure. The amount of fluoroscopy time used during this procedure was 3.9 minutes. Total radiation dose was 123.27 mGy. COMPARISON: None. FINDINGS/IMPRESSION: Fluoroscopic images demonstrate bone rongeur advanced coaxially through a cannula to the left and right interlaminar space is at the level of L3-L4 for reported posterior decompression. See procedure note for further detail. Reviewed, dictated and finalized at location A.
--- OUTSIDE RECORDS SUMMARY | 2024-11-29 08:43 | XMS_ITS | Encounter Summary ---
Author Organization [facility] Address [facility] [place] [address] Care Team Providers Care Equipment Service Lead Name Role Phone Sherrill Jovel MD Primary Care Provider [phone]- [phone] Encounter Details Date Type Department Care Team (Late st Contact Info) Description 02/17/2022 Hospital Orders Only [facility] [address] [place] [address] Bruce Coulter MD [address] [place] [address] Social History Tobacco Use Types Packs/Day Years Used Date Smoking Tobacco: Never Smokeless Tobacco: Never Alcohol Use Standard Drinks/Week Comments Never 0 (1 standard drink = 0.6 oz pur e alcohol) Comments No Sex and Gender Information Value Date Recorded Sex Assigned at Not on file Legal Sex Female 7:49 AM PROSTHETIC TECHNICIAN Gender Identity Not on file Sexual Orientation Not on file COVID-19 Exposure Response Date Recorded In the last 10 days, have yo u been in contact with someone who was confirmed or suspected to have Coronavirus/COVID-19? No / Unsure 02/17/2022 8:52 AM PROSTHETIC TECHNICIAN documented as of this encounter Plan of Treatment Not on file documented as of this encounter Visit Diagnoses Not on filedocumented in this encounter Care Teams Equipment Service Lead Relationship Specialty Start Date End Date Sherrill Jovel MD [address] [place] [address] PCP - General FAMILY PRACTICE 02/17/22 documented as of this encounter
--- OUTSIDE RECORDS SUMMARY | 2024-11-29 08:43 | XMS_ITS | Encounter Summary ---
Author Organization [facility] Address [address] [place] [id number] Care Team Providers Care Change Of Address Clerk Name Role Phone Sherrill Jovel MD Primary Care Provider [phone]- [phone] Encounter Details Date Type Department Care Team (Late st Contact Info) Description 02/17/2022 Prep for Procedure [facility] [address] [place], [place] [id number] Bruce Coulter MD [address] [place] [address] Social History Tobacco Use Types Packs/Day Years Used Date Smoking Tobacco: Never Smokeless Tobacco: Never Alcohol Use Standard Drinks/Week Comments Never 0 (1 standard drink = 0.6 oz pur e alcohol) Comments No Sex and Gender Information Value Date Recorded Sex Assigned at Not on file Legal Sex Female 7:49 AM BEHAVIORAL INTERVENTION SPECIALIST Gender Identity Not on file Sexual Orientation Not on file COVID-19 Exposure Response Date Recorded In the last 10 days, have yo u been in contact with someone who was confirmed or suspected to have Coronavirus/COVID-19? No / Unsure 02/17/2022 8:52 AM BEHAVIORAL INTERVENTION SPECIALIST documented as of this encounter Plan of Treatment Not on file documented as of this encounter Visit Diagnoses Not on filedocumented in this encounter Care Teams Change Of Address Clerk Relationship Specialty Start Date End Date Sherrill Jovel MD [address] [facility] [address] [address] [place] [address] PCP - General FAMILY PRACTICE 02/17/22 documented as of this encounter
--- OUTSIDE RECORDS SUMMARY | 2024-11-29 08:43 | XMS_ITS | Clinical Summary ---
Author Organization [facility] Address [address] [place] [address] Care Team Providers Care Manager Application Name Role Phone Sherrill Jovel MD Primary Care Provider [phone] Allergies No known active allergies Medications allopurinol [...] on file Legal Sex Female 7:49 AM SECONDARY SCHOOL PRINCIPAL Gender Identity Not on file Sexual Orientation Not on file Last Filed Vital Signs Vital Sign Reading Time Taken Comments Blood Pressure 131/49 02/17/2022 11:19 AM SECONDARY SCHOOL PRINCIPAL Pulse 60 02/17/2022 11:19 AM SECONDARY SCHOOL PRINCIPAL Temperature 36.2 C (97.2 F) 02/17/2022 9:25 AM SECONDARY SCHOOL PRINCIPAL Respiratory Rate 18 02/17/2022 9:25 AM SECONDARY SCHOOL PRINCIPAL Oxygen Saturation 96% 02/17/2022 11:19 AM SECONDARY SCHOOL PRINCIPAL Inhaled Oxygen Concentration - - Weight 96.2 kg (212 lb) 02/03/2022 1:23 PM SECONDARY SCHOOL PRINCIPAL Height 160 cm (5' 3) 02/03/2022 1:23 PM SECONDARY SCHOOL PRINCIPAL Body Mass Index 37.55 02/03/2022 1:23 PM SECONDARY SCHOOL PRINCIPAL Plan of Treatment Health Maintenance Due Date Last Done Comments Colorectal Cancer Screening Colonoscopy (10 Years) 1955 Hepatitis C 11/06/1973 DTaP, Tdap and Td Vaccines ( 1 - Tdap) 11/06/1974 Mammogram Screening 1995 Pneumococcal Vaccine: 50+ Years (1 of 1 - PCV) 11/06/2005 Zoster Vaccines (1 of 2) 11/06/2005 Annual Medicare Wellness Visit 11/06/2020 Dexa Scan (General) 11/06/2020 COVID-19 Vaccine (3 - 2024-2 6 season) 2024 06/14/2020, 05/24/2020 RSV Immunization or 60+ Years [...] this topic Medical Devices Implanted Type Area Manager Parking Device Identifier Shelf Expiration Date Model / Serial / Lot Clareon Iol Aspheric Hydrophobic Acrylic Iol Implanted:Qty: 1 on 02/17/2022 by Bruce Coulter MD at [facility] Right: Eye [employer] 06/03/2024 [id number] / [id number] / Insurance MEDICARE [facility] Care Teams Manager Application Relationship Specialty Start Date End Date Sherrill Jovel MD [address] [place] [address] PCP - General FAMILY PRACTICE 02/17/22
--- OUTSIDE RECORDS SUMMARY | 2024-11-29 08:43 | XMS_ITS | Clinical Summary ---
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 Gender Identity Not on file Sexual Orientation [...] (221 lb 9.6 oz) 025 10:37 AM PLAYGROUND MONITOR Height 161.3 cm (5' 3.5) 04/26/2024 10 :37 AM PLAYGROUND MONITOR Body Mass Index 38.64 04/26/2024 10:37 AM PLAYGROUND MONITOR Plan of Treatment Health Maintenance Due Date [...] Assessment 08/02/2023 08/01/2022 Covid-19 Vaccine ( season) 2024, 05/24/2020 Influenza Vaccine (#1) 2024 Medical Devices Implanted Type Area Biology Department Chair Device Identifier Shelf Expiration Date Model / Serial / Lot [employer] Simplex P Full Dose Radiopaque Preblend Cement Bone Tobramycin 6197-9-010 - [id number] Implanted:Qty: 1 on 07/30/2022 by Shreyas Persaud MD at [facility] Right: Knee [employer] 10/21/2023 6197-9-010 / / [id number] [employer] Legion 18mm Knee Short Cone Wedge Tibial Sterile [id number] - [id number] - [id number] Implanted:Qty: 1 on 07/30/2022 by Shreyas Persaud MD at [facility] [employer] 05/23/2032 [id number] / [id number] / [employer] Legion 10mm 220mm Pressfit Knee Straight Stem Femoral [id number] - [id number] - [id number] Implanted:Qty: 1 on 07/30/2022 by Shreyas Persaud MD at [facility] Right: Knee [employer] 02/06/2025 [id number] / [id number] / [employer] Legion Revision Knee Right 3 Baseplate Tibial [id number] - [id number] Implanted:Qty: 1 on 07/30/2022 by Shreyas Persaud MD at [facility] Right: Knee [employer] 05/30/2032 [id number] / / [employer] Nexgen 15-30mm Knee 67mm Cone Large Step Augment Tibial [id number] - [id number] Implanted:Qty: 1 on 07/30/2022 by Shreyas Persaud MD at [facility] Right: Knee [employer] [id number] 03/22/2024 [id number] / / [id number] Screw On De Tibal Wedge Implanted:Qty: 1 on 07/30/2022 by Shreyas Persaud MD at [facility] Right: Knee [employer] 01/28/2025 / [id number] / [employer] Simplex P Full Dose Radiopaque Preblend Cement Bone Tobramycin 6197-9-010 - [id number] Implanted:Qty: 1 on 07/30/2022 by Shreyas Persaud MD at [facility] Right: Knee [employer] 12/21/2023 6197-9-010 / / [id number] [employer] Ashleigh Ii 15mm Posterior Stabilized Constrained Knee 3-4 Insert [id number] - [id number] Implanted:Qty: 1 on 07/30/2022 by Shreyas Persaud MD at [facility] Right: Knee [employer] [id number] 12/08/2030 [id number] / / [id number] [employer] Ashleigh Ii 15mm Posterior Stabilized Constrained Knee 3-4 Insert [id number] - [id number] Implanted:Qty: 1 on 07/30/2022 by Shreyas Persaud MD at [facility] Right: Knee [employer] [id number] 12/08/2030 [id number] / / [id number] Insurance MEDICARE ADVANTAGE MEDICARE ADVANTAGE Advance Directives For more information, please contact: [phone] * Full Code (Latest Code Status on File) Date Activated Date Inactivated Comments 07/30/2022 5:13 PM 08/01/2022 5:34 PM Care Teams Lace Roller Operator Relationship Specialty Start Date End Date Shani See NP [address] [place] [id number] PCP - General Invoice Control Clerk 04/22/22
[2024-11-29 08:46] VITALS: BP 137/72; PULSE 72; RESP 16; TEMP 36.7; O2SAT 98
[2024-11-29] MEDS: LACTATED RINGERS 1,000 ML 30 ML IV CONT (09:00)
--- NOTE | 2024-11-29 09:13 | WPDANESEPPF ---
Anes - Initial Pre Proc Eval Pre Op Diagnosis: Lumbosacral Spondylosis w/o Myelopathy or Radicul. Patient Data Allergies Allergy/AdvReac Type Severity Reaction Status Date / Time No Known Allergies Allergy Verified 11/29/24 08:44 Home Medications ?Medication ?Instructions ?Recorded ?Confirmed ?Type cetirizine 10 mg tablet (Zyrtec) 10 mg PO DAILY 09/02/23 11/29/24 History lisinopril 10 mg tablet 10 mg PO DAILY #90 tabs 01/01/24 11/29/24 Rx alprazolam 0.5 mg tablet 0.5 mg PO DAILY anxiety #2 tabs 06/20/24 11/29/24 Rx omeprazole 40 mg capsule,delayed 40 mg PO DAILY #90 caps 06/29/24 11/29/24 Rx release propranolol 40 mg tablet 40 mg PO BID #180 tabs 06/29/24 11/29/24 Rx levothyroxine 75 mcg tablet 75 mcg PO DAILY #90 tabs 09/30/24 11/29/24 Rx metformin 500 mg tablet 500 mg PO BIDWMEAL #180 tabs 09/30/24 11/29/24 Rx triamterene 37.5 1 tablet PO QAM #90 tabs 10/12/24 11/29/24 Rx mg-hydrochlorothiazide 25 mg tablet celecoxib 200 mg capsule 200 mg PO BID Pain 10/24/24 11/29/24 History duloxetine 30 mg capsule,delayed 30 mg PO QPM 10/24/24 11/29/24 History release allopurinol 300 mg tablet 300 mg PO DAILY 11/18/24 11/29/24 History cyclobenzaprine 10 mg tablet 10 mg PO TID PRN muscle spasm 7 11/29/24 Rx days #21 tabs hydrocodone 5 mg-acetaminophen 325 1 tablet PO Q6H PRN pain 7 days 11/29/24 Rx mg tablet #28 tabs methylprednisolone 4 mg tablets in See Rx Instructions PO .COMPLEX 6 11/29/24 Rx a dose pack (Medrol (Chance)) days #21 ea Patient hx anesthesia problems: none Family hx anesthesia problems: none PMFSH Past Medical History Medical History Diabetes type 2, controlled Chronic cough Cough HLD (hyperlipidemia) Hypothyroidism associated with surgical procedure Benign essential HTN Migraines Gout Chronic pain Arthritis BP (high blood pressure) Surgical History Surgical History History of arthroscopic knee surgery right knee 2007 H/O thyroidectomy History of total knee arthroplasty right knee x3 2007, 2011, 2013 left knee 2008 Family History Family History Sibling Cerebrovascular accident, Onset Age: 53 Mother Family history of diabetes mellitus in mother, Onset Age: 79 Social History Social History Social History: Smoking status: Never smoker Second hand tobacco smoke exposure: Yes Alcohol intake: unknown Substance use: never Substance use type: does not use Do You Feel Safe in your Home?: Yes Lack of Transportation: No Lack of Food: Never True Current Housing: I Have Housing Concerned About Future Housing: No Difficulty Paying Gas/Electric Bills: No Difficulty Paying for Meds: No Currently Unemployed: YES Education: Decline to Answer Difficulty w/ Childcare or Family Care: No Living arrangements: alone Occupation/Education: retired Gender identity (if verbalized by the patient): Female Sexual Orientation (if Verbalized by the Patient): Straight or Heterosexual Spiritual care concerns: No Anes - Eval Final PreProcedure Day of Procedure 11/29/24 09:13 Results Review: All pre-operative results and documents have been reviewed as part of the pre-operative evaluation. Informed Consent: The patient's anesthetic plan and its attendant risks and benefits were discussed with the patient/family/POA. Questions were solicited and answers provided to the satisfaction of the patient/family/POA.
--- NOTE | 2024-11-29 10:42 | WPDHPUPDATE1 ---
History and Physical Update Update Date/Time: 11/29/24 10:42 History and Physical has been reviewed, including an updated exam of the patient. There are NO changes in the patient's condition. Risks, benefits, and alternatives have been discussed and questions answered. Patient agrees to proceed with procedure.
--- NOTE | 2024-11-29 10:43 | P.OP_ITS ---
Procedure Note - Detailed Date of Procedure 11/29/24 Pre-op Diagnosis Lumbar spinal stenosis with neurogenic claudication Post-op Diagnosis Same Procedure Performed Bilateral Minimally Invasive Lumbar Decompression (MILD) at L3-4 under F luoroscopic Guidance. Surgeon Ruben Forde MD Rubberizing Mechanic None Anesthesia Other ([Moderate IV sedation/MAC] with local anesthetic infiltration in the prone position) Description of Procedure INFORMED CONSENT: Risks, benefits, and alternatives to the procedure were discussed in detail with the patient who expressed explicit understanding and consent to proceed. Risks discussed with the patient included but were not limited to risk of serious local or systemic infection, bleeding/bruising, epidural hematoma, dural puncture or tear resulting in CSF leak and acute or chronic post-dural puncture headache, scarring/deformity, immediate or delayed allergic reaction, decreased mobility, failure to treat pain, inadvertent neurologic injury resulting in increased pain, weakness/paralysis or numbness, inadvertent organ injury, need for additional surgery, allergic reaction, heart attack, stroke, seizure, coma, . Anesthetic risks were also briefly discussed by myself and the explosive ordnance disposal specialist. The patient expressed understanding and consent to proceed, agreeing that potential benefits outweigh risk of harm. All materials required for the procedure were immediately available prior to procedure start. Site and side were confirmed with the patient, compared carefully to the patient chart and consent, and marked prior to transport to the operating room. Appropriate time out procedure was performed per protocol prior to procedure start. PROCEDURE IN DETAIL: The patient was brought to the operative suite and placed in the prone position. Appropriate ASA standard monitors were attached. Anesth esia was initiated without difficulty or event. Eyes were protected. Pressure points were padded with joints in neutral position. When appropriate, breasts and genitals were evaluated and protected. Eyes were checked and were free from undue pressure. Skin overlying the procedure site was marked with sterile marker. Surgical area was prepared in a typical sterile fashion with ChloraPrep and allowed to dry for at least 3 minutes prior to sterilely draping the surgical site. The lumbar spine was identified in the AP fluoroscopic view with slight cephalad tilt perfectly aligning the endplates at the targeted levels with spinous processes bisecting the transpedicular plane. After identifying the intended incision site approximately 1.5 levels inferior to the level of interest, the area was anesthetized by infiltration with no more than 10ml of a 1:1 admixture of 0.5% PF bupivacaine with epinephrine and 2% PF lidocaine with epinepherine via a 27- gauge needle after negative aspiration. A 22-gauge spinal needle was used to provide additional and adequate local anesthesia to the level of the interspinous ligament, ligamentum flavum and the periosteum of the lamina at the intended treatment levels. In the AP view, a #11 scalpel blade was used to create a single stab incision at the intended incision site on the targeted side. The Vertos MILD kit was opened and the included cannula and trocar assembly was advanced through the incision to contact the midportion of the right lamina just adjacent to the spinous process at L5. Once seated, the lateral view was used to gauge depth demonstrating the most anterior tip of the trocar posterior to the epidural space at all times. The educational technology specialist-provided cannula stabilizer was placed over the trocar flush to the patient's lumbar flank. Cannula obturator with handle was removed. Included depth guide was then attached to the insertion port on the cannula and set to an intitial depth of 15 mm. The bone rongeur was advanced to the depth of the lumbar lamina at the targeted level. Depth gauge was then adjusted allowing rongeur tip to advance in the contralateral oblique view to the anterior border of the superior and inferior lamina at the respective intervertebral foramen. Multiple passes of the rongeur were used in the contralateral oblique view to remove single small portions of ligament and bone in a 360-degree distribution, approximately 3-5 passes on each lamina, until appropriate access to the superior and inferior attachments of the ligamentum flavum was created at the surgical level right L3-4. Each individual portion of bone removed was extracted, collected and discarded. Rongeur was removed and replaced with a tissue sculpter which was deployed from inferior to superior in the contralateral oblique view to delaminate the ligamentum flavum at the intended level with serial groupings of three passes each, 6-9 total per side treated. Tissue extracted was discarded. At no point did the rongeur or tissue sculpter violate the anterior border of the ligament as evidenced by intact interface at the ligament/epidural border. The same procedure was repeated in the exact same fashion, utilizing the initial stab incision, to effectively debulk the ligamentum flavum and decompress the central spinal canal on the left at L3-4, with similar results and no evidence of complication. Bone and tissue sculpters were withdrawn, obturator replaced and trocar removed in the lateral view, entirely and without difficulty. Hemostasis was obtained and confirmed. Mastisol was placed around the incision site(s) and Steri-Strips were placed in a arturo-crossing fashion across the wound(s), which were then covered with Telfa dressing and Tegaderm. The patient was converted to the supine position and transported to the recovery area having tolerated the procedure well with no evidence of complication. The patient was instructed to minimize weightbearing activity, including ambulation, for 48 hours, and to avoid bending, twisting at the waist, overhead work, reaching and lifting, pushing or pulling greater than 5-10 lbs for 48 hours with subsequent return to normal activity as tolerated. The patient is to maintain current dressing for 48 hours, then can remove the original dressing, leaving steri-strips in place until they come off on their own or are removed by their provider. Once removing the outer bandage, the patient will cover the incision with clean gauze and paper tape as needed, changing daily or when soiled. The patient understands they should avoid soaking or submerging the incision for 1 week and can resume showers after 48 hours. Instructions were provided to the patient in both verbal and written form, which the patient obtained, reviewed and signed prior to discharge. The patient was instructed to watch for signs of infection including fevers, chills, night sweats, severe headache, neck stiffness, new neurologic deficit, bowel or bladder changes, increased pain, discharge, bleeding, swelling, opening of or unusual warmth at the incision site. They are to call our office or report directly to the Emergency Department immediately should there be any signs/symptoms of complications such as the above or any other urgent/emergent changes in their condition. COMMENTS: None. COMPLICATIONS: None. DRAINS/PACKING: None. SPECIMEN: None. ESTIMATED BLOOD LOSS: 10 mL. IV FLUIDS: On chart. Pathology None sent Complications No immediate complications Condition Stable Disposition PACU [facility] Billing Surgery - Charge Forward: Surgery Billing
--- NOTE | 2024-11-29 11:02 | WPDANESEPPF ---
Anes - Initial Pre Proc Eval Procedure: Operation Date: 11/29/24 10:00 Proposed Procedures p Bilateral Minimally Invasive Lumbar Decompression L3-4 under Fluoroscopic Guidance, Possible Epidurogram - Ruben Forde MD Date/Time: 11/29/24 11:02 Surgeon: Ruben Forde MD Pre Op Diagnosis: Lumbosacral Spondylosis w/o Myelopathy or Radicul. Patient Data Age: 69 Gender: F Height: 1.6 m Weight: 97.75 kg Last Vital Signs Temp 98.1 F 11/29/24 08:46 Pulse 72 11/29/24 08:46 Resp 16 11/29/24 08:46 BP 137/72 11/29/24 08:46 Pulse Ox 98 11/29/24 08:46 O2 Del Method Room Air 11/29/24 08:46 Allergies Allergy/AdvReac Type Severity Reaction Status Date / Time No Known Allergies Allergy Verified 11/29/24 08:44 Home Medications ?Medication ?Instructions ?Recorded ?Confirmed ?Type cetirizine 10 mg tablet (Zyrtec) 10 mg PO DAILY 09/02/23 11/29/24 History lisinopril 10 mg tablet 10 mg PO DAILY #90 tabs 01/01/24 11/29/24 Rx alprazolam 0.5 mg tablet 0.5 mg PO DAILY anxiety #2 tabs 06/20/24 11/29/24 Rx omeprazole 40 mg capsule,delayed 40 mg PO DAILY #90 caps 06/29/24 11/29/24 Rx release propranolol 40 mg tablet 40 mg PO BID #180 tabs 06/29/24 11/29/24 Rx levothyroxine 75 mcg tablet 75 mcg PO DAILY #90 tabs 09/30/24 11/29/24 Rx metformin 500 mg tablet 500 mg PO BIDWMEAL #180 tabs 09/30/24 11/29/24 Rx triamterene 37.5 1 tablet PO QAM #90 tabs 10/12/24 11/29/24 Rx mg-hydrochlorothiazide 25 mg tablet celecoxib 200 mg capsule 200 mg PO BID Pain 10/24/24 11/29/24 History duloxetine 30 mg capsule,delayed 30 mg PO QPM 10/24/24 11/29/24 History release allopurinol 300 mg tablet 300 mg PO DAILY 11/18/24 11/29/24 History Laboratory Tests 11/29/24 09:01 POC Capillary Glucose 166 H mg/dl (65-105) Patient hx anesthesia problems: none Family hx anesthesia problems: none Results Review: All pre-operative results and documents have been reviewed as part of the pre-operative evaluation. [facility] Past Medical History Medical History Diabetes type 2, controlled Chronic cough Cough HLD (hyperlipidemia) Hypothyroidism associated with surgical procedure Benign essential HTN Migraines Gout Chronic pain Arthritis BP (high blood pressure) Surgical History Surgical History History of arthroscopic knee surgery right knee 2007 H/O thyroidectomy History of total knee arthroplasty right knee x3 2007, 2011, 2013 left knee 2007 Family History Family History Sibling Cerebrovascular accident, Onset Age: 53 Mother Family history of diabetes mellitus in mother, Onset Age: 79 Social History Social History Social History: Smoking status: Never smoker Second hand tobacco smoke exposure: Yes Alcohol intake: unknown Substance use: never Substance use type: does not use Do You Feel Safe in your Home?: Yes Lack of Transportation: No Lack of Food: Never True Current Housing: I Have Housing Concerned About Future Housing: No Difficulty Paying Gas/Electric Bills: No Difficulty Paying for Meds: No Currently Unemployed: YES Education: Decline to Answer Difficulty w/ Childcare or Family Care: No Living arrangements: alone Occupation/Education: retired Gender identity (if verbalized by the patient): Female Sexual Orientation (if Verbalized by the Patient): Straight or Heterosexual Spiritual care concerns: No Anes - Eval Final PreProcedure Day of Procedure 11/29/24 11:02 Heart: regular rate and rhythm Lungs: clear to auscultation Airway: Mallampati scale class III Neurological: alert and oriented Last oral intake: >/= 8 hours ASA classification: III Anesthetic plan: proceed Anesthesia type and monitoring: monitored anesthesia care Results Review: All pre-operative results and documents have been reviewed as part of the pre-operative evaluation. Informed Consent: The patient's anesthetic plan and its attendant risks and benefits were discussed with the patient/family/POA. Questions were solicited and answers provided to the satisfaction of the patient/family/POA.
[2024-11-29] MEDS: ceFAZolin SODIUM 2 GM/20 ML SW SYRINGE IV PUSH (11:25)
[2024-11-29] MEDS: LIDOCAINE 2% PF LOCAL INJ 5 ML VIAL 10 ML INFILTRATE (11:41)
[2024-11-29 11:59] VITALS: BP 127/64; PULSE 74; RESP 14; O2SAT 99
[2024-11-29 12:14] VITALS: BP 128/61; PULSE 72; RESP 16; O2SAT 98
--- NOTE | 2024-11-29 12:26 | WPDANESPN ---
Anes - Prog Note Post-Op Date/Time: 11/29/24 12:26 Cardiovascular status: normal Respiratory status: normal Airway patency: baseline Mental status: baseline Post-Op hydration status: normal Vital Signs: Last Vital Signs Temp 36.7 C 11/29/24 08:46 Pulse 72 11/29/24 12:14 Resp 16 11/29/24 12:14 BP 128/61 11/29/24 12:14 Pulse Ox 98 11/29/24 12:14 O2 Del Method Room Air 11/29/24 12:14 O2 Flow Rate 2 11/29/24 11:59 Pain Score (VAS): 2 11/29/24 09:01 POC Capillary Glucose 166 H Post-procedural complaints: none Patient Feedback: Patient satisfied with anesthetic care.
[2024-11-29 12:30] VITALS: BP 106/61; PULSE 64; RESP 16; O2SAT 100
== END 2024-11-29 12:44 | disposition home or self-care (01) ==
PROVIDERS: PCP Physician Assistant; Visit Provider Anesthesiology Pain Medicine
PROC: (CPT 0275T; principal; 2024-11-29 10:00)
DX: M48.062 Spinal stenosis, lumbar region with neurogenic claudication (principal); M47.27 Other spondylosis with radiculopathy, lumbosacral region
CPT/HCPCS: 0275T; 99199